=== PATIENT | male | born 1950 | race Caucasian/White ===

== ENCOUNTER → 2017-02-12 | Outpatient (CLI) | payer BC ==
--- NOTE | 2017-02-12 20:01 | CT ---
EXAMINATION TYPE: CT urogram wo/w con DATE OF EXAM: 02/12/2017 COMPARISON: 12/03/2009 HISTORY: HEMATURIA CT DLP: 546.9 mGycm, Automated Exposure Control for Dose Reduction was Utilized. CONTRAST: CT scan of the abdomen and pelvis is performed with oral and without and with IV Contrast, patient in jected with 100 mL of Omnipaque 300. FINDINGS: There is emphysema at the lung bases. There is no pleural effusion. Liver shows no focal defect. Gallbladder appears normal. Spleen appears normal. There is no sign of a pancreatic mass. There is moderate atherosclerotic vascular calcification. Bile ducts are not dilate d. Common bile duct measures 6 mm. There is mild 3 cm mid abdominal aortic aneurysm. There is no sign of retroperitoneal adenopathy. Kidneys have normal size and contour with normal contrast opacification. There is no hydronephrosis. Ureters are not dilated. The bladder distends smoothly. There is some retained fecal material in the rectum. There is no evidence of a bladder mass. CONCLUSION: Pulmonary emphysema. There is a 3 cm mild aneurysm of the abdominal aorta that is new compared to old exam. No evidence of renal mass or obstruction. I do not see a cause for hematuria. Atherosclerotic vascular disease. Mild constipation.
== END | disposition home or self-care (01) ==
LOC: RADCTMAIN 18:36
PROVIDERS: ATTEND Internal Medicine
DX: I71.4 Abdominal aortic aneurysm, without rupture (principal); I70.0 Atherosclerosis of aorta; K59.00 Constipation, unspecified
CPT/HCPCS: 74178; 74400; Q9967

== ENCOUNTER → 2017-02-16 | Outpatient (CLI) | payer BC ==
--- NOTE | 2017-02-16 10:17 | US ---
EXAMINATION TYPE: US carotid duplex BILAT DATE OF EXAM: 02/16/2017 COMPARISON: US 2013 CLINICAL HISTORY: I35.1 Nonrheumatic mitral regurgitation. Stenosis EXAM MEASUREMENTS: RIGHT: Peak Systolic Velocity (PSV) cm/sec ----- Right CCA: 63.3 ----- Right ICA: 123.7 ----- Right ECA: 90.8 ICA/CCA ratio: 2.0 RIGHT: End Diastole cm/sec ----- Right CCA: 13.6 ----- Right ICA: 31.8 ----- Right ECA: 0.0 LEFT: Peak Systolic Velocity (PSV) cm/sec ----- Left CCA: 75.4 ----- Left ICA: 219.8 ----- Left ECA: 122.1 ICA/CCA ratio: 2.9 LEFT: End Diastole cm/sec ----- Left CCA: 18.2 ----- Left ICA: 54.8 ----- Left ECA: 0.0 VERTEBRALS (direction of flow): Right Vertebral: Antegrade Left Vertebral: Antegrade Rhythm: Normal Bilateral intimal thickening, plaque: bilateral CCA, bulb and proximal ICA, elevated velocities: left proximal mid and distal ICA, right ICA/CCA ratio of 2.0, left ICA/CCA ratio of 2.9. IMPRESSION: 1. Sonographic findings indicating between 50-69% stenosis of the left internal carotid artery, howev er higher grade stenosis of 60-70% is estimated given the anderson scale images and CTA is recommended fo r further evaluation. Finding has progressed from the prior exam. 2. Approximately 50% stenosis of the right internal carotid artery. 3. Antegrade flow in the vertebral arteries.
--- NOTE | 2017-02-16 10:41 | US ---
EXAMINATION TYPE: US duplex aorta DATE OF EXAM: 02/16/2017 COMPARISON: US 2012, CT 2009 CLINICAL HISTORY: I35.1 Nonrheumatic mitral regurgitation. Nonrheumatic aortic regurgitation EXAM MEASUREMENTS: Abdominal Aorta: Proximal: 2.4 x 2.7cm Mid: 2.7 x 2.8cm Distal: 1.9 x 1.9cm Right Iliac: 1.6 x 0.9cm Left Iliac: 1.0 x 0.9cm Heavy atherosclerotic changes, 3.0 x 3.3 x 3.0cm aneurysm mid/distal portion of aorta. IMPRESSION: Severe atherosclerosis of the abdominal aorta with saccular right posterior lateral infra renal abdominal aortic aneurysm measuring 3.0 x 3.3 x 3.0 cm. This does not extend into the iliac art eries.
--- NOTE | 2017-02-16 11:14 | ECHOF ---
Referral Reason:I35.1 Nonrheumatic mitral regergitation MEASUREMENTS -------- HEIGHT: 172.7 cm WEIGHT: 54.4 kg BP: 183/75 IVSd: 0.6 cm (0.6 - 1.1) LVIDd: 4.3 cm (3.9 - 5.3) LVPWd: 0.9 cm (0.6 - 1.1) IVSs: 1.0 cm LVIDs: 3.2 cm LVPWs: 1.2 cm LAESV Index (A-L): 21.96 ml/m Ao Diam: 3.4 cm (2.0 - 3.7) AV Cusp: 2.1 cm (1.5 - 2.6) LA Diam: 3.0 cm (2.7 - 3.8) MV EXCURSION: 15.228 mm (> 18.000) MV EF SLOPE: 104 mm/s (70 - 150) EPSS: 0.8 cm MV E Marvin: 1.04 m/s MV DecT: 222 ms MV A Marvin: 0.91 m/s MV E/A Ratio: 1.14 AR PHT: 641 ms RAP: 5.00 mmHg RVSP: 61.55 mmHg FINDINGS -------- Sinus rhythm. This was a technically good study. The left ventricular size is normal. Left ventricular wall thickness is normal. Overall left vent ricular systolic function is mildly impaired with, an EF between 45 - 50 %. The right ventricle is normal in size and function. Normal LA size by volume 22+/-6 ml/m2. The right atrium is mildly enlarged. Aortic valve is trileaflet and is mildly thickened. There is mild aortic regurgitation. The mitral valve leaflets are mildly thickened. Mild mitral regurgitation is present. Moderate tricuspid regurgitation present. There is moderate pulmonary hypertension. The right cindy tricular systolic pressure, as measured by Doppler, is 61.55mmHg. Pulmonic valve appears structurally normal. The aortic root size is normal. The inferior vena cava is moderately dilated. The pericardium is normal. CONCLUSIONS -------- 1. Sinus rhythm. 2. This was a technically good study. 3. The left ventricular size is normal. 4. Left ventricular wall thickness is normal. 5. Overall left ventricular systolic function is mildly impaired with, an EF between 45 - 50 %. 6. The right ventricle is normal in size and function. 7. Normal LA size by volume 22+/-6 ml/m2. 8. The right atrium is mildly enlarged. 9. Aortic valve is trileaflet and is mildly thickened. 10. There is mild aortic regurgitation. 11. The mitral valve leaflets are mildly thickened. 12. Mild mitral regurgitation is present. 13. Moderate tricuspid regurgitation present. 14. There is moderate pulmonary hypertension. 15. The right ventricular systolic pressure, as measured by Doppler, is 61.55mmHg. 16. Pulmonic valve appears structurally normal. 17. The aortic root size is normal. 18. The inferior vena cava is moderately dilated. 19. The pericardium is normal. BUSINESS SYSTEMS ANALYST: Nelli Burns RDCS
== END ==
LOC: RADUSMAIN 08:35
PROVIDERS: ATTEND Internal Medicine
DX: I65.22 Occlusion and stenosis of left carotid artery (principal); I70.0 Atherosclerosis of aorta; I71.4 Abdominal aortic aneurysm, without rupture; I72.3 Aneurysm of iliac artery; I08.3 Combined rheumatic disorders of mitral, aortic and tricuspid valves; I27.20 Pulmonary hypertension, unspecified
CPT/HCPCS: 93306; 93880; 93979

== ENCOUNTER → 2018-01-21 | Outpatient (CLI) | payer MEDICARE ==
[2018-01-21 14:01] LABS: Appearance,Urine Clear (Clear); Bilirubin,Urine Negative (Negative); Blood,Urine Negative (Negative); Color,Urine Yellow; Glucose,Urine (UA) Negative (Negative); Ketones,Urine Negative (Negative); Leukocyte Esterase,Urine Negative (Negative); Nitrite,Urine Negative (Negative); PH, Urine 6.5 (5.0-8.0); Protein,Urine Trace (Negative); Specific Gravity,Urine 1.014 (1.001-1.035); Urobilinogen,Urine <2.0 mg/dL (<2.0)
[2018-01-21 14:07] LABS: Basophils # (A) 0.1 k/uL (0-0.2); Basophils % (A) 1 %; Eosinophils # (A) 0.1 k/uL (0-0.7); Eosinophils % (A) 1 %; HCT 42.1 % (39.0-53.0); HGB 13.2 gm/dL (13.0-17.5); Lymphocytes # (A) 2.7 k/uL (1.0-4.8); Lymphocytes % (A) 27 %; MCH 32.6 pg (25.0-35.0); MCHC 31.5 g/dL (31.0-37.0); MCV 103.7 fL (80.0-100.0); Macrocytosis Slight; Mean Platelet Volume 7.1; Monocytes # (A) 0.6 k/uL (0-1.0); Monocytes % (A) 6 %; Neutrophils # (A) 6.3 k/uL (1.3-7.7); Neutrophils % (A) 64 %; Platelet Count 305 k/uL (150-450); RBC 4.06 m/uL (4.30-5.90); RDW 13.8 % (11.5-15.5)
[2018-01-21 14:18] LABS: Albumin 4.8 g/dL (3.5-5.0); Calcium 10.3 mg/dL (8.4-10.2); Potassium 4.5 mmol/L (3.5-5.1); Total Bilirubin 0.4 mg/dL (0.2-1.3); Total Protein 8.4 g/dL (6.3-8.2); Uric Acid 6.7 mg/dL (3.5-8.5)
[2018-01-21 14:34] LABS: T4, Free (Free Thyroxine) 1.26 ng/dL (0.78-2.19)
[2018-01-21 14:48] LABS: Prostate Specific Antigen 0.67 ng/mL (0.00-4.00)
[2018-01-21 20:41] LABS: Hemoglobin A1C 5.3 % (4.0-6.0)
== END | disposition home or self-care (01) ==
LOC: LABWHC1 12:33
PROVIDERS: ATTEND Internal Medicine
DX: G40.89 Other seizures (principal); I10 Essential (primary) hypertension; E78.00 Pure hypercholesterolemia, unspecified; J44.9 Chronic obstructive pulmonary disease, unspecified; N40.1 Benign prostatic hyperplasia with lower urinary tract symptoms
CPT/HCPCS: 36415; 80053; 80061; 81003; 82550; 83036; 83735; 84153; 84439; 84443; 84550; 85025

== ENCOUNTER → 2018-03-19 | Outpatient (CLI) | payer MEDICARE | LOC: LABWHC1 06:33 | PROVIDERS: ATTEND Internal Medicine | DX: I10 Essential (primary) hypertension (principal); G40.89 Other seizures; E78.00 Pure hypercholesterolemia, unspecified; N40.1 Benign prostatic hyperplasia with lower urinary tract symptoms; J44.9 Chronic obstructive pulmonary disease, unspecified | CPT/HCPCS: 36415; 80164 ==

== ENCOUNTER → 2018-07-01 | Outpatient (CLI) | payer MEDICARE, OTHER ==
--- NOTE | 2018-07-01 16:39 | US ---
EXAMINATION TYPE: US carotid duplex BILAT DATE OF EXAM: 07/01/2018 COMPARISON: NONE CLINICAL HISTORY: I65.23 Occlusion and stenosis of bilat carotid.... EXAM MEASUREMENTS: RIGHT: Peak Systolic Velocity (PSV) cm/sec ----- Right CCA: 136.9 ----- Right ICA: 211.7 ----- Right ECA: 199.2 ICA/CCA ratio: 1.5 RIGHT: End Diastole cm/sec ----- Right CCA: 27.2 ----- Right ICA: 50.5 ----- Right ECA: 9.8 LEFT: Peak Systolic Velocity (PSV) cm/sec ----- Left CCA: 140.2 ----- Left ICA: 356.4 ----- Left ECA: 221.2 ICA/CCA ratio: 2.5 LEFT: End Diastole cm/sec ----- Left CCA: 27.2 ----- Left ICA: 77.7 ----- Left ECA: 0.0 VERTEBRALS (direction of flow): Right Vertebral: Antegrade Left Vertebral: Antegrade Rhythm: Arrhythmia Patient has severe atherosclerotic changes with calcified plaque throughout. High velocities seen thr oughout with elevations in bilateral ICA's. Ratio believed to be underestimated due to high velocitie s in CCA's. Waveform analysis show significant stenosis likely on the left. IMPRESSION: Hemodynamic significant stenosis of the proximal internal carotid artery on the left by Doppler criteria, an indirect measurement of carotid stenosis. Findings likely at least 50-69% diamet er reduction on the left, velocities are diffusely elevated however. There are diffuse atheromatous changes. Consider vascular surgery consult. Criteria for Assigning % of Stenosis / Diameter reduction (Estimation based on the indirect measurements of the internal carotid artery velocities (ICA PSV). 1. Normal (no stenosis)=ICA PSV < 125 cm/s: ratio < 2.0: ICA EDV<40 cm/s. 2. Less than 50% stenosis=ICA PSV < 125 cm/s: ratio < 2.0: ICA EDV<40 cm/s. 3. 50 to 69% stenosis=ICA PSV of 125 to 230 cm/s: ration 2.0 ? 4.0: ICA EDV 40-100 cm/s. 4. Greater than 70% stenosis to near occlusion= ICA PSV > 230 cm/s: ratio > 4.0: ICA EDV > 100 cm/s. 5. Near occlusion= ICA PSV velocities may be low or undetectable: variable ratio and ICA EDV. 6. Total occlusion=unable to detect flow.
--- NOTE | 2018-07-02 13:23 | ECHOF ---
Referral Reason:I65.23 Occlusion and stenosis of bilat carotid... MEASUREMENTS -------- HEIGHT: 172.7 cm WEIGHT: 63.5 kg BP: 114/55 RVIDd: 2.9 cm (< 3.3) IVSd: 1.0 cm (0.6 - 1.1) LVIDd: 4.0 cm (3.9 - 5.3) LVPWd: 1.1 cm (0.6 - 1.1) IVSs: 1.6 cm LVIDs: 2.7 cm LVPWs: 1.4 cm LA Diam: 2.8 cm (2.7 - 3.8) LAESV Index (A-L): 14.16 ml/m Ao Diam: 3.5 cm (2.0 - 3.7) AV Cusp: 2.2 cm (1.5 - 2.6) MV EXCURSION: 17.614 mm (> 18.000) MV EF SLOPE: 85 mm/s (70 - 150) EPSS: 0.3 cm MV E Marvin: 0.77 m/s MV DecT: 226 ms MV A Marvin: 0.87 m/s MV E/A Ratio: 0.88 AR PHT: 263 ms RAP: 5.00 mmHg RVSP: 34.02 mmHg FINDINGS -------- Sinus rhythm. This was a technically adequate study. The left ventricular size is normal. Left ventricular wall thickness is normal. Overall left vent ricular systolic function is normal with, an EF between 60 - 65 %. The right ventricle is normal in size. Normal LA size by volume 22+/-6 ml/m2. The right atrium is normal in size. There is mild aortic valve sclerosis. There is mild aortic regurgitation. The mitral valve is normal. Mild tricuspid regurgitation present. There is borderline pulmonary hypertension. There is no pulmonic regurgitation present. The aortic root size is normal. Normal inferior vena cava with normal inspiratory collapse consistent with estimated right atrial pre ssure of 5 mmHg. There is a trivial pericardial effusion present. CONCLUSIONS -------- 1. Sinus rhythm. 2. This was a technically adequate study. 3. The left ventricular size is normal. 4. Left ventricular wall thickness is normal. 5. Overall left ventricular systolic function is normal with, an EF between 60 - 65 %. 6. The right ventricle is normal in size. 7. Normal LA size by volume 22+/-6 ml/m2. 8. The right atrium is normal in size. 9. There is mild aortic valve sclerosis. 10. There is mild aortic regurgitation. 11. The mitral valve is normal. 12. Mild tricuspid regurgitation present. 13. There is borderline pulmonary hypertension. 14. There is no pulmonic regurgitation present. 15. The aortic root size is normal. 16. Normal inferior vena cava with normal inspiratory collapse consistent with estimated right atrial pressure of 5 mmHg. 17. There is a trivial pericardial effusion present. CARTON FILLING MACHINE OPERATOR: Ivanna Leblanc RDCS
== END | disposition home or self-care (01) ==
LOC: RADECHMAIN 14:19
PROVIDERS: ATTEND Internal Medicine
DX: I65.22 Occlusion and stenosis of left carotid artery (principal); I08.3 Combined rheumatic disorders of mitral, aortic and tricuspid valves; I27.20 Pulmonary hypertension, unspecified; I31.3 Pericardial effusion (noninflammatory)
CPT/HCPCS: 93306; 93880

== ENCOUNTER → 2018-07-01 | Outpatient (CLI) | payer MEDICARE, OTHER ==
--- NOTE | 2018-07-01 15:33 | CTL ---
EXAMINATION TYPE: CT Low Dose Lung DATE OF EXAM ORDERED: 07/01/2018 HISTORY: Long-term tobacco use. Lung cancer screening CT DLP: 55.[address] CTDI: 1.5 mGy Automated exposure control for dose reduction was used. SCREENING VISIT: Initial study COMPARISON: CT chest October 28, 2014 TECHNIQUE: Low dose computed tomography scan was performed through the chest at 1 mm thick sections a nd reconstructed images in the coronal plane at [address] DIAGNOSTIC QUALITY: Satisfactory FINDINGS: LUNG NODULES: Present, detailed below: A 3 mm nodule laterally left lower lobe axial image 233 likely stable from prior study image 46 There is new right medial lower lobe masslike consolidation appears to have some air bronchograms abu tting the pleura measuring 3.9 x 1.8 cm axial image 2 37 x 7.1 cm craniocaudal dimension coronal imag e 177. LUNGS: COPD: Severity: Moderate to severe Fibrosis: Severity: Additional mild to moderate linear scarring felt present left lower lobe new from prior. Mild biapical scarring. Lymph nodes: None Other findings: None BILATERAL PLEURAL SPACE: Effusion: None Calcification: None Thickening: None Pneumothorax: None HEART: Heart Size: Normal Coronary calcification: Severe Pericardial effusion: None OTHER FINDINGS: Upper abdomen: None Bony thorax: Mild multilevel disc space narrowing with mild to moderate multilevel anterior spurring Supraclavicular region: None. Other: Moderate calcified plaque of aorta extends into branch vessels. Main pulmonary artery is dilat ed at 3.[address] findings suggesting underlying pulmonary artery hypertension. IMPRESSION: Moderate to severe underlying emphysematous change with new masslike consolidation medial right lower lobe has some air bronchograms favor postinflammatory in etiology but because masslike a ppearance neoplasm cannot be excluded. FOLLOW UP CT CHEST RECOMMENDATION: Advise PET/CT CT LUNG RAD: Lung-Rad 4B Suspicious Findings favor postinflammatory, correlate clinically. PET/CT can be performed to exclude malignancy.
== END | disposition home or self-care (01) ==
LOC: RADCTMAIN 14:14
PROVIDERS: ATTEND Internal Medicine
DX: Z12.2 Encounter for screening for malignant neoplasm of respiratory organs (principal); J43.9 Emphysema, unspecified; Z87.891 Personal history of nicotine dependence

== ENCOUNTER → 2018-07-29 | Outpatient (CLI) | payer MEDICARE, OTHER | LOC: RADCTMAIN 08:07 | PROVIDERS: ATTEND Thoracic Surgery (Cardiothoracic Vascular Surgery) | DX: Z01.812 Encounter for preprocedural laboratory examination (principal); I65.23 Occlusion and stenosis of bilateral carotid arteries | CPT/HCPCS: 70549; 82565; 84520 ==

== ENCOUNTER → 2018-07-29 | Outpatient (CLI) | payer MEDICARE, OTHER ==
--- NOTE | 2018-07-29 22:24 | MR ---
EXAMINATION TYPE: MR angio neck wo/w con DATE OF EXAM: 07/29/2018 COMPARISON: Carotid ultrasound July 01, 2018 HISTORY: Stenosis TECHNIQUE: Time of flight images focusing on the neck Ruano were performed without and with IV contr ast. Patient is injected with 6.5 cc of gadolinium this for the study. 2-D and 3-D postprocessing im aging is performed in MRI scanner. FINDINGS: There is normal three-vessel origin from aortic arch. Right common carotid artery shows nor mal origin from right brachiocephalic artery. There is no significant focal stenosis in the right com mon carotid artery There is greater than 50% narrowing in the right external carotid artery shortly a fter its origin seen best on axial image 37 series 401. Right internal carotid artery is bulbous shor tly after its origin with filling moderate peripheral plaque just distal to this, lumen diameter is n arrowed to approximately 5.1 mm transversely by 2.8 cm AP diameter image 47 series 401 and reconstitu raimundo to 5.6 mm image 57. The stenosis less than 50% is felt present. Remainder of right internal carot id artery shows no significant focal stenosis. Left common carotid artery shows mild peripheral plaque near its origin with stenosis under 50% thoug ht present remainder common carotid artery shows mild to moderate plaque distally without significant stenosis. There is patent external carotid artery with moderate plaque but no greater than 50% steno sis. There is bulbous appearance to the left internal carotid artery shortly after its origin with se angy anterior eccentric plaque causing narrowing down to 3.9 x 3.2 mm axial image 46 series 401 with reconstitution distal to this at 6.5 x 6.4 mm. A stenosis just over 50% is felt present. Remainder of left internal carotid artery shows no additional significant stenosis. There is dominant right vertebral artery. Vertebral arteries are patent to basilar junction. IMPRESSION: Confirmation of greater than 50% stenosis proximal left internal carotid artery details a arsalan.
== END ==
LOC: RADMRIMAIN 19:10
PROVIDERS: ATTEND Thoracic Surgery (Cardiothoracic Vascular Surgery)
DX: I65.22 Occlusion and stenosis of left carotid artery (principal)
CPT/HCPCS: 70549; A9585

== ENCOUNTER → 2018-08-03 | Outpatient (CLI) | payer MEDICARE, OTHER ==
--- NOTE | 2018-08-05 07:29 | PE ---
EXAMINATION TYPE: PET CT fusion skull to thigh DATE OF EXAM: 08/03/2018 COMPARISON: Low-dose lung screening CT July 01, 2018. CT urogram February 12, 2017. HISTORY: Lung mass per order. Recent abnormal CT. TECHNIQUE: Following the intravenous administration of 13.945 mCi of F-18 FDG, whole body images are performed from the skull base to the midthigh. Images are reviewed on the computer in the coronal, axial, and sagittal planes. Reconstructed rotating images are created on independent workstation and reviewed on the computer. A noncontrast CT is performed in conjunction with the PET scan. SCAN: Initial Scan FINDINGS: SKULL BASE AND NECK: No suspicious areas of abnormal hypermetabolic uptake. CHEST, MEDIASTINUM, AND HILAR REGION: A background moderate to advanced underlying emphysematous emery nge is redemonstrated. There is persistent masslike consolidation with central air bronchograms media l right lung base abutting the pleura measuring roughly 4.3 x 1.9 cm axial image 119, that appears am etabolic. No areas of abnormal hypermetabolic uptake are present to suggest malignancy. Focus of mild hypermetabolic uptake right shoulder is presumed postinflammatory. The 3 mm left lower lobe lateral nodule is less well-seen on PET/CT. ABDOMEN AND PELVIS: No areas of suspicious hypermetabolic uptake. OSSEOUS STRUCTURES: No areas of suspicious hypermetabolic uptake. OTHER CT: Moderate to severe calcified plaque centered at bilateral carotid bulbs is present. Main pulmonary artery and bifurcation measures 3.5 cm axial image 96. Adjacent ascending aorta measur es up to 3.5 cm. Moderate to severe coronary artery calcification is present which is noted marked underlying coronary artery disease. Bilateral gynecomastia is noted. Gallbladder has distended margins. There is moderate to severe calcified plaque of the aorta extendin g into branch vessels. There is aneurysmal change of the abdominal aorta measuring up to 3.1 cm trans versely axial image 165. There is multilevel spurring in the spine. There is facet arthropathy lower lumbar levels. Scoliotic curvature in the lumbar spine is noted. IMPRESSION: No areas of abnormal hypermetabolic uptake to suggest malignancy. Area of concern medial right lung base favors postinflammatory scar.
== END | disposition home or self-care (01) ==
LOC: RADPETMAIN 07:20
PROVIDERS: ATTEND Internal Medicine Pulmonary Disease
DX: R91.8 Other nonspecific abnormal finding of lung field (principal)
CPT/HCPCS: 78815; A9552

== ENCOUNTER → 2018-10-18 | Outpatient (CLI) | payer MEDICARE, OTHER ==
--- NOTE | 2018-10-18 20:10 | CT ---
EXAMINATION TYPE: CT chest wo con DATE OF EXAM: 10/18/2018 COMPARISON: Prior PET/CT 08/03/[address] low dose lung 07/01/2018 HISTORY: Solitary pulmonary nodule. CT DLP: 117.8 mGycm. Automated Exposure Control for Dose Reduction was Utilized. TECHNIQUE: CT scan of the thorax is performed without IV contrast. FINDINGS: LUNGS: The right lower lobe soft tissue seen on prior exam adjacent to the spine has decreased in siz e in the interval, there is some internal air bronchograms. Extensive emphysematous changes are prese nt. There is scarring present as on prior exam. There is no pleural effusion or pneumothorax seen. T he tracheobronchial tree is patent. MEDIASTINUM: Lack of IV contrast is noted to limit evaluation for mediastinal and especially hilar ad enopathy. There are no definitive greater than 1 cm hilar or mediastinal lymph nodes. No cardiomega ly or pericardial effusion is seen. There are coronary artery calcifications present. Atheromatous ch anges are present within the aorta. OTHER: No additional significant abnormality is seen. Upper abdomen is unremarkable. IMPRESSION: Favor postinflammatory scarring as described on previous exams.
== END | disposition home or self-care (01) ==
LOC: RADCTMAIN 16:31
PROVIDERS: ATTEND Internal Medicine
DX: R91.1 Solitary pulmonary nodule (principal)
CPT/HCPCS: 71250

== ENCOUNTER 2018-11-05 00:07 | Emergency (ER) | payer MEDICARE, OTHER ==
[2018-11-05 00:20] VITALS: RESP 18; TEMP 98.3
--- NOTE | 2018-11-05 00:31 | ED ---
General Adult HPI - General Chief complaint: Altered Mental Status Stated complaint: Altered Mental Status Time Seen by Provider: 11/05/18 00:09 Source: patient, EMS Mode of arrival: EMS Limitations: altered mental status - History of Present Illness Initial comments: Dictation was produced using [employer] dictation software. please excuse any grammatical, word or spelling errors. Chief Complaint: 67-year-old male presents today via EMS for altered mental status. History of Present Illness: Patient is 67-year-old male presents with altered mental status. Patient's past medical history of hypertension and cancer. Patient is a very poor historian. EMS reports that they were called for altered mental status. Cardiac EMS patient was alert and oriented 3 out of 4. EMS was called by patient's family member. According EMS patient has a history of being seen here in emergency department and having to be transferred to [facility] for bleeding lesions on the brain. She has no idea of his medical history. He however has no points of shortness of breath, fever. He did state that he was nauseated. He had 2 episodes of nonbilious nonbloody emesis today. The ROS documented in this emergency department record has been reviewed and confirmed by me. Those systems with pertinent positive or negative responses h ave been documented in the HPI. All other systems are other negative and/or noncontributory. PHYSICAL EXAM: General Impression: Alert and oriented x3, not in acute distress HEENT: Normocephalic atraumatic, extra-ocular movements intact, pupils equal and reactive to light bilaterally, mucous membranes moist. Cardiovascular: Heart regular rate and rhythm, S1&S2 audible, no murmurs, rubs or gallops Chest: Lungs clear to auscultation bilaterally, no rhonchi, no wheeze, no rales Abdomen: Bowel sounds present, abdomen soft, non-tender, non-distended, no organomegaly Musculoskeletal: Pulses present and equal in all extremities, no peripheral edema Motor: no focal deficits noted Neurological: CN II-XII grossly intact, no focal motor or sensory deficits noted Skin: Intact with no visualized rashes Psych: Normal affect and mood ED course: 67-year-old male presents with altered mental status. Vital signs upon arrival are within acceptable limits. More history was obtained from patient's . Patient has a history of dementia. reports that patient was the sling signs of abnormal behavior at home. He has history of this year. Patient has no complaints at this time. He feels well. Did have some nausea earlier today. is comfortable taking him home. Computed tomography scan of the brain and laboratory evaluation is unremarkable. Patient clear for discharge advised follow-up with primary care physician. Brenda presentation consistent with dementia. EKG interpretation: Ventricular rate 69, normal sinus rhythm,. Interval 140, care is 80, QTc 441. No [place] prolongation, no QTC prolongation, no ST or T-wave changes noted. . Overall, this EKG is unremarkable - Related Data Home Medications Medication Instructions Recorded Confirmed ALPRAZolam [Xanax] 0.25 mg PO BID PRN 03/24/17 03/24/17 Baclofen 10 mg PO BID 03/24/17 03/24/17 Escitalopram [Lexapro] 5 mg PO DAILY 03/24/17 03/24/17 Hydrocodone/Acetaminophen [B[place] 1 tab PO Q8H PRN 03/24/17 03/24/17 10-325] Lisinopril [Zestril] 20 mg PO BID 03/24/17 03/24/17 Mirtazapine 45 mg PO HS 03/24/17 03/24/17 Pantoprazole Sodium 40 mg PO DAILY 03/24/17 03/24/17 Previous Rx's Medication Instructions Recorded Ondansetron Odt [Zofran Odt] 4 mg PO Q8HR PRN #12 tab 11/05/18 Allergies Allergy/AdvReac Type Severity Reaction Status Date / Time No Known Allergies Allergy Verified 11/05/18 00:20 Review of Systems ROS Statement: Those systems with pertinent positive or pertinent negative responses have been documented in the HPI. ROS Other: All systems not noted in ROS Statement are negative. Past Medical History Past Medical History: Hypertension Additional Past Medical History / Comment(s): lesions on brain 2017 that were bleeding History of Any Multi-Drug Resistant Organisms: None Reported Past Surgical History: No Surgical Hx Reported Past Psychological History: No Psychological Hx Reported Smoking Status: Current every day smoker Past Alcohol Use History: None Reported Past Drug Use History: None Reported - Past Family History Father Additional Family Medical History / Comment(s): Both parents are but family members are unable to provide any information regarding his family medical history. Patient also has 2 brothers and one sister. There are 2 sons and one adopted daughter. General Exam Limitations: altered mental status Course Vital Signs 11/05/18 00:13 Temperature 98.3 F Pulse Rate 73 Respiratory 18 Rate Blood Pressure 155/60 O2 Sat by Pulse 97 Oximetry Medical Decision Making - Lab Data Result diagrams: 11/05/18 01:05 11/05/18 01:05 Lab Results 11/05/18 11/05/18 11/05/18 Range/Units 01:05 01:05 01:05 WBC 6.8 (3.8-10.6) k/uL RBC 3.66 L (4.30-5.90) m/uL Hgb 13.0 (13.0-17.5) gm/dL Hct 40.2 (39.0-53.0) % MCV 109.8 H (80.0-100.0) fL MCH 35.6 H (25.0-35.0) pg MCHC 32.5 (31.0-37.0) g/dL RDW 17.0 H (11.5-15.5) % Plt Count 225 (150-450) k/uL Neutrophils % 70 % Lymphocytes % 18 % Monocytes % 7 % Eosinophils % 2 % Basophils % 1 % Neutrophils # 4.7 (1.3-7.7) k/uL Lymphocytes # 1.3 (1.0-4.8) k/uL Monocytes # 0.5 (0-1.0) k/uL Eosinophils # 0.2 (0-0.7) k/uL Basophils # 0.0 (0-0.2) k/uL Manual Slide Review Performed Hypersegmented Neuts Present Anisocytosis Slight Macrocytosis Marked A PT (9.0-12.0) sec INR (<1.2) Sodium 145 (137-145) mmol/L Potassium 4.2 (3.5-5.1) mmol/L Chloride 114 H (98-107) mmol/L Carbon Dioxide 20 L (22-30) mmol/L Anion Gap 11 mmol/L BUN 23 H (9-20) mg/dL Creatinine 1.23 (0.66-1.25) mg/dL Est GFR (CKD-EPI)AfAm 71 (>60 ml/min/1.73 sqM) Est GFR (CKD-EPI)NonAf 62 (>60 ml/min/1.73 sqM) Glucose 124 H (74-99) mg/dL Plasma Lactic Acid Martínez 1.1 (0.7-2.0) mmol/L Calcium 10.2 (8.4-10.2) mg/dL Magnesium 2.2 (1.6-2.3) mg/dL 11/05/18 Range/Units 01:05 WBC (3.8-10.6) k/uL RBC (4.30-5.90) m/uL Hgb (13.0-17.5) gm/dL Hct (39.0-53.0) % MCV (80.0-100.0) fL MCH (25.0-35.0) pg MCHC (31.0-37.0) g/dL RDW (11.5-15.5) % Plt Count (150-450) k/uL Neutrophils % % Lymphocytes % % Monocytes % % Eosinophils % % Basophils % % Neutrophils # (1.3-7.7) k/uL Lymphocytes # (1.0-4.8) k/uL Monocytes # (0-1.0) k/uL Eosinophils # (0-0.7) k/uL Basophils # (0-0.2) k/uL Manual Slide Review Hypersegmented Neuts Anisocytosis Macrocytosis PT 10.7 (9.0-12.0) sec INR 1.0 (<1.2) Sodium (137-145) mmol/L Potassium (3.5-5.1) mmol/L Chloride (98-107) mmol/L Carbon Dioxide (22-30) mmol/L Anion Gap mmol/L BUN (9-20) mg/dL Creatinine (0.66-1.25) mg/dL Est GFR (CKD-EPI)AfAm (>60 ml/min/1.73 sqM) Est GFR (CKD-EPI)NonAf (>60 ml/min/1.73 sqM) Glucose (74-99) mg/dL Plasma Lactic Acid Martínez (0.7-2.0) mmol/L Calcium (8.4-10.2) mg/dL Magnesium (1.6-2.3) mg/dL Disposition Clinical Impression: Dementia Disposition: HOME SELF-CARE Condition: Good Instructions (If sedation given, give patient instructions): Altered Mental Status (ED) Prescriptions: Ondansetron Odt [Zofran Odt] 4 mg PO Q8HR PRN #12 tab PRN Reason: Nausea Is patient prescribed a controlled substance at d/c from ED?: No Referrals: Kiet Chester MD [Primary Care Provider] - 1-2 days Time of Disposition: 02:36
[2018-11-05 01:15] LABS: Anisocytosis Slight; Basophils % (A) 1 %; Eosinophils # (A) 0.2 k/uL (0-0.7); Eosinophils % (A) 2 %; HCT 40.2 % (39.0-53.0); Lymphocytes # (A) 1.3 k/uL (1.0-4.8); Lymphocytes % (A) 18 %; MCH 35.6 pg (25.0-35.0); MCHC 32.5 g/dL (31.0-37.0); MCV 109.8 fL (80.0-100.0); Macrocytosis Marked; Mean Platelet Volume 6.8; Monocytes # (A) 0.5 k/uL (0-1.0); Monocytes % (A) 7 %; Neutrophils # (A) 4.7 k/uL (1.3-7.7); Neutrophils % (A) 70 %; Platelet Count 225 k/uL (150-450); RBC 3.66 m/uL (4.30-5.90); WBC 6.8 k/uL (3.8-10.6)
--- NOTE | 2018-11-05 01:23 | CT ---
EXAM: CT Head Without Intravenous Contrast CLINICAL HISTORY: Pain TECHNIQUE: Axial computed tomography images of the head/brain without intravenous contrast. CTDI is 0.085, 0.75, 49.1mGy and DLP is 1117.4 mGy-cm. This CT exam was performed using one or more of the following dose reduction techniques: automated exposure control, adjustment of the mA and/or kV according to patient size, and/or use of iterative reconstruction technique. COMPARISON: CT head dated 03/24/2017 FINDINGS: Brain: No acute infarct, hemorrhage, mass or edema. Chronic small vessel ischemic disease and senescent changes. Small amount of encephalomalacia within the right occipital lobe. Ventricles: Unremarkable. No ventriculomegaly. Bones/joints: Evidence of prior right occipital craniotomy. No acute calvarial abnormality. Soft tissues: Unremarkable. Sinuses: Unremarkable as visualized. No acute sinusitis. Mastoid air cells: Unremarkable as visualized. No mastoid effusion. IMPRESSION: No acute findings.
[2018-11-05 01:24] LABS: Calcium 10.2 mg/dL (8.4-10.2); Magnesium 2.2 mg/dL (1.6-2.3); Potassium 4.2 mmol/L (3.5-5.1)
[2018-11-05 01:36] LABS: Prothrombin Time 10.7 sec (9.0-12.0)
[2018-11-05 02:26] LABS: Hypersegmented Neutrophils Present
[2018-11-05 03:28] LABS: Appearance,Urine Clear (Clear); Bilirubin,Urine Negative (Negative); Blood,Urine Trace (Negative); Color,Urine Yellow; Glucose,Urine (UA) Negative (Negative); Ketones,Urine Negative (Negative); Leukocyte Esterase,Urine Negative (Negative); Mucus,Urine Rare /hpf; Nitrite,Urine Negative (Negative); PH, Urine 5.5 (5.0-8.0); Protein,Urine Trace (Negative); RBC,Urine 22 /hpf (0-5); Urobilinogen,Urine <2.0 mg/dL (<2.0)
[2018-11-05 03:38] LABS: Amphetamine Screen,Urine Not Detected (NotDetected); Benzodiazepines Screen,Urine Detected (NotDetected); Cocaine Screen,Urine Not Detected (NotDetected); Opiate Screen,Urine Not Detected (NotDetected); Phencyclidine Screen,Urine Not Detected (NotDetected); Tricyclic Antidepressant,Urine Detected (NotDetected)
[2018-11-05 03:39] LABS: Barbiturate Screen,Urine Not Detected (NotDetected); Methadone Screen, Urine Not Detected (NotDetected); Oxycodone Screen, Urine Not Detected (NotDetected); Urn Cannabinoid Scrn Not Detected (NotDetected)
[2018-11-05 04:07] VITALS: BP 136/100; PULSE 69
== END 2018-11-05 04:06 | disposition home or self-care (01) ==
LOC: EC 00:07
DX: F03.90 Unspecified dementia, unspecified severity, without behavioral disturbance, psychotic disturbance, mood disturbance, and anxiety (principal); R11.2 Nausea with vomiting, unspecified; I10 Essential (primary) hypertension; F17.200 Nicotine dependence, unspecified, uncomplicated; Z79.899 Other long term (current) drug therapy; Z85.9 Personal history of malignant neoplasm, unspecified; Z86.69 Personal history of other diseases of the nervous system and sense organs
CPT/HCPCS: 36415; 70450; 80048; 80306; 81001; 83605; 83735; 85025; 85610; 93005; 99285

== ENCOUNTER 2019-01-16 12:40 | Inpatient (IN) | payer MEDICARE, OTHER ==
[2019-01-16] MEDS ORDERED: SODIUM CHLORIDE 0.9% 1,000 ML IV STA (13:16)
--- NOTE | 2019-01-16 13:21 | ED ---
Fever HPI - General Chief Complaint: Fever Stated Complaint: flu like symptoms Time Seen by Provider: 01/16/19 12:55 Source: patient, EMS Mode of arrival: EMS Limitations: no limitations - History of Present Illness Initial Comments: Patient is a 68-year-old male with history of dementia and seizures presenting to emergency Department with a chief complaint of a fever. Patient is a poor historian but but is still able to answer questions. Patient is AO 3. is there to obtain further information. The reports the patient has developed generalized weakness, confusion, urinary and bowel incontinence. also reports the patient was not able to take his medication for the past 2 days due to inability to swallow. reports the patient has had difficulty swallowing for over a year however recently has increased in severity. Was reports the patient had bleeding brain lesions that were detected in this ED and the patient was transferred to him before.. reports the patient had fevers or chills over the past 2-3 days but never actually obtained his temperature. Patient denies headaches, lightheadedness, dizziness, shortness of breath, chest pain, nausea, vomiting. - Related Data Home Medications Medication Instructions Recorded Confirmed Baclofen 10 mg PO BID PRN 03/24/17 01/16/19 Acetaminophen [Tylenol Arthritis] 650 mg PO Q4H PRN 01/16/19 01/16/19 Atorvastatin [Lipitor] 40 mg PO DAILY 01/16/19 01/16/19 Divalproex Sodium [Depakote] 500 mg PO BID 01/16/19 01/16/19 Famotidine [Pepcid] 20 mg PO DAILY 01/16/19 01/16/19 Gemfibrozil [Lopid] 600 mg PO AC-BID 01/16/19 01/16/19 Irbesartan [Avapro] 300 mg PO DAILY 01/16/19 01/16/19 Mirtazapine [Remeron] 15 mg PO HS 01/16/19 01/16/19 amLODIPine [Norvasc] 5 mg PO BID 01/16/19 01/16/19 hydrALAZINE HCL [Apresoline] 100 mg PO TID 01/16/19 01/16/19 Allergies Allergy/AdvReac Type Severity Reaction Status Date / Time No Known Allergies Allergy Verified 01/16/19 17:05 Review of Systems ROS Statement: Those systems with pertinent positive or pertinent negative responses have been documented in the HPI. ROS Other: All systems not noted in ROS Statement are negative. Past Medical History Past Medical History: Hypertension, Seizure Disorder Additional Past Medical History / Comment(s): lesions on brain 2017 that were bleeding History of Any Multi-Drug Resistant Organisms: None Reported Past Surgical History: No Surgical Hx Reported Additional Past Surgical History / Comment(s): foot surgery Past Psychological History: No Psychological Hx Reported Smoking Status: Current every day smoker Past Alcohol Use History: None Reported Past Drug Use History: None Reported - Past Family History Father Additional Family Medical History / Comment(s): Both parents are but family members are unable to provide any information regarding his family medical history. Patient also has 2 brothers and one sister. There are 2 sons and one adopted daughter. General Exam Limitations: no limitations General appearance: alert, in no apparent distress Head exam: Present: atraumatic, normocephalic, normal inspection Eye exam: Present: normal appearance Pupils: Present: normal accommodation ENT exam: Present: normal exam, normal oropharynx, mucous membranes dry, TM's normal bilaterally, normal external ear exam Neck exam: Present: normal inspection, full ROM Respiratory exam: Present: normal lung sounds bilaterally Cardiovascular Exam: Present: regular rate, normal rhythm, normal heart sounds GI/Abdominal exam: Present: soft. Absent: tenderness, guarding Rectal exam: Present: normal rectal tone Extremities exam: Present: normal inspection, full ROM Back exam: Present: normal inspection, full ROM Neurological exam: Present: alert, oriented X3 Psychiatric exam: Present: normal affect, normal mood Skin exam: Present: warm, intact, normal color Course Vital Signs 01/16/19 01/16/19 01/16/19 12:45 14:10 15:23 Temperature 98.9 F 100.7 F H Pulse Rate 106 H 102 H 117 H Respiratory 18 16 18 Rate Blood Pressure 170/76 160/64 145/70 O2 Sat by Pulse 98 97 94 L Oximetry Medical Decision Making - Medical Decision Making Patient is a 68-year-old male with history of dementia is presenting to the emergency Department with a chief complaint of fever, urinary bowel incont inence. With reports of patient had developed urinary bowel incontinence for the past 2-3 days. She also reports the patient has developed generalized weakness. Patient does report fevers and chills but never actually collected his temperature. Patient is responsive but a poor historian. is able to fill in the history. Patient does fit source criteria for sepsis. Appropriate Labs obtained. Patient does have a large anion gap with low carbon dioxide. Venous blood gas pending. UA is unremarkable. Chest x-ray is indicative of a possible pneumothorax or could be a skin fold. Chest x-ray is also indicative of atypical pneumonia. Patient does have a history of brain lesions and CT of the brain obtained that is negative. Chest CT pending. Patient will be admitted based on sepsis protocol. patient good rectal tone and does not have any numbness based on physical examination in the groin region low concern for cauda equina due to urinary bowel incontinence. Patient given fluids, antipyretics, Rocephin, azithromycin and vancomycin. Dr. Rojas also examined the patient and is in agreement with the treatment plan. Dr. Nino's admitting physician. Dr. Srinivasan consulted - Lab Data Result diagrams: 01/16/19 12:57 01/16/19 12:57 Lab Results 01/16/19 01/16/19 01/16/19 Range/Units 12:57 12:57 12:57 WBC 10.5 (3.8-10.6) k/uL RBC 3.51 L (4.30-5.90) m/uL Hgb 13.1 (13.0-17.5) gm/dL Hct 40.6 (39.0-53.0) % MCV 115.6 H (80.0-100.0) fL MCH 37.3 H (25.0-35.0) pg MCHC 32.3 (31.0-37.0) g/dL RDW 13.1 (11.5-15.5) % Plt Count 256 (150-450) k/uL Neutrophils % 73 % Lymphocytes % 18 % Monocytes % 7 % Eosinophils % 1 % Basophils % 0 % Neutrophils # 7.6 (1.3-7.7) k/uL Lymphocytes # 1.8 (1.0-4.8) k/uL Monocytes # 0.7 (0-1.0) k/uL Eosinophils # 0.1 (0-0.7) k/uL Basophils # 0.0 (0-0.2) k/uL Manual Slide Review Performed Macrocytosis Marked A Sodium 146 H (137-145) mmol/L Potassium 4.5 (3.5-5.1) mmol/L Chloride 120 H (98-107) mmol/L Carbon Dioxide 13 L (22-30) mmol/L Anion Gap 13 mmol/L BUN 31 H (9-20) mg/dL Creatinine 1.54 H (0.66-1.25) mg/dL Est GFR (CKD-EPI)AfAm 54 (>60 ml/min/1.73 sqM) Est GFR (CKD-EPI)NonAf 46 (>60 ml/min/1.73 sqM) Glucose 107 H (74-99) mg/dL Plasma Lactic Acid Martínez 1.3 (0.7-2.0) mmol/L Calcium 10.6 H (8.4-10.2) mg/dL Total Bilirubin 0.4 (0.2-1.3) mg/dL AST 31 (17-59) U/L ALT 26 (21-72) U/L Alkaline Phosphatase 52 (38-126) U/L Total Protein 7.9 (6.3-8.2) g/dL Albumin 4.7 (3.5-5.0) g/dL Urine Color Urine Appearance (Clear) Urine pH (5.0-8.0) Ur Specific Alden (1.001-1.035) Urine Protein (Negative) Urine Glucose (UA) (Negative) Urine Ketones (Negative) Urine Blood (Negative) Urine Nitrite (Negative) Urine Bilirubin (Negative) Urine Urobilinogen (<2.0) mg/dL Ur Leukocyte Esterase (Negative) Influenza Type A RNA (Not Detectd) Influenza Type B (PCR) (Not Detectd) 01/16/19 01/16/19 Range/Units 14:00 15:15 WBC (3.8-10.6) k/uL RBC (4.30-5.90) m/uL Hgb (13.0-17.5) gm/dL Hct (39.0-53.0) % MCV (80.0-100.0) fL MCH (25.0-35.0) pg MCHC (31.0-37.0) g/dL RDW (11.5-15.5) % Plt Count (150-450) k/uL Neutrophils % % Lymphocytes % % Monocytes % % Eosinophils % % Basophils % % Neutrophils # (1.3-7.7) k/uL Lymphocytes # (1.0-4.8) k/uL Monocytes # (0-1.0) k/uL Eosinophils # (0-0.7) k/uL Basophils # (0-0.2) k/uL Manual Slide Review Macrocytosis Sodium (137-145) mmol/L Potassium (3.5-5.1) mmol/L Chloride (98-107) mmol/L Carbon Dioxide (22-30) mmol/L Anion Gap mmol/L BUN (9-20) mg/dL Creatinine (0.66-1.25) mg/dL Est GFR (CKD-EPI)AfAm (>60 ml/min/1.73 sqM) Est GFR (CKD-EPI)NonAf (>60 ml/min/1.73 sqM) Glucose (74-99) mg/dL Plasma Lactic Acid Martínez (0.7-2.0) mmol/L Calcium (8.4-10.2) mg/dL Total Bilirubin (0.2-1.3) mg/dL AST (17-59) U/L ALT (21-72) U/L Alkaline Phosphatase (38-126) U/L Total Protein (6.3-8.2) g/dL Albumin (3.5-5.0) g/dL Urine Color Light Yellow Urine Appearance Clear (Clear) Urine pH 5.5 (5.0-8.0) Ur Specific Alden 1.012 (1.001-1.035) Urine Protein Trace H (Negative) Urine Glucose (UA) Negative (Negative) Urine Ketones Negative (Negative) Urine Blood Negative (Negative) Urine Nitrite Negative (Negative) Urine Bilirubin Negative (Negative) Urine Urobilinogen <2.0 (<2.0) mg/dL Ur Leukocyte Esterase Negative (Negative) Influenza Type A RNA Not Detected (Not Detectd) Influenza Type B (PCR) Not Detected (Not Detectd) 01/16/19 15:21 Sinus tachycardia with first-degree AV block. No ST elevation Ventricular rate 101, [place] interval 212, QRS duration 70, QT/QTc 33/438, Disposition Clinical Impression: Pneumonia Disposition: HOME SELF-CARE Condition: Stable Instructions (If sedation given, give patient instructions): Fever in Adults (ED) Additional Instructions: Patient will be admitted Is patient prescribed a controlled substance at d/c from ED?: No Referrals: Kiet Chester MD [Primary Care Provider] - 1-2 days Time of Disposition: 17:36
[2019-01-16 13:55] LABS: Albumin 4.7 g/dL (3.5-5.0); Calcium 10.6 mg/dL (8.4-10.2); Potassium 4.5 mmol/L (3.5-5.1); Total Bilirubin 0.4 mg/dL (0.2-1.3); Total Protein 7.9 g/dL (6.3-8.2)
[2019-01-16 14:11] LABS: Basophils % (A) 0 %; Eosinophils # (A) 0.1 k/uL (0-0.7); Eosinophils % (A) 1 %; HCT 40.6 % (39.0-53.0); HGB 13.1 gm/dL (13.0-17.5); Lymphocytes # (A) 1.8 k/uL (1.0-4.8); Lymphocytes % (A) 18 %; MCH 37.3 pg (25.0-35.0); MCHC 32.3 g/dL (31.0-37.0); MCV 115.6 fL (80.0-100.0); Macrocytosis Marked; Mean Platelet Volume 7.1; Monocytes # (A) 0.7 k/uL (0-1.0); Monocytes % (A) 7 %; Neutrophils # (A) 7.6 k/uL (1.3-7.7); Neutrophils % (A) 73 %; Platelet Count 256 k/uL (150-450); RBC 3.51 m/uL (4.30-5.90); RDW 13.1 % (11.5-15.5); WBC 10.5 k/uL (3.8-10.6)
[2019-01-16 14:22] LABS: Appearance,Urine Clear (Clear); Bilirubin,Urine Negative (Negative); Blood,Urine Negative (Negative); Color,Urine Light Yellow; Glucose,Urine (UA) Negative (Negative); Ketones,Urine Negative (Negative); Leukocyte Esterase,Urine Negative (Negative); Nitrite,Urine Negative (Negative); PH, Urine 5.5 (5.0-8.0); Protein,Urine Trace (Negative); Specific Gravity,Urine 1.012 (1.001-1.035); Urobilinogen,Urine <2.0 mg/dL (<2.0)
--- NOTE | 2019-01-16 14:50 | XR ---
EXAMINATION TYPE: XR chest 2V DATE OF EXAM: 01/16/2019 COMPARISON: 03/24/2017 HISTORY: Fever and cough TECHNIQUE: Frontal and lateral views of the chest are obtained. FINDINGS: Questionable skinfold versus less likely pneumothorax on the right. Repeat radiograph with inspiratory and expiratory films are recommended. New patchy interstitial opacity in the left upper l katrina. Remainder the lungs are well aerated with changes of COPD including pulmonary per inflation and biapical lucency. Cardiomediastinal silhouette is within normal limits. Osseous structures display ge neralized demineralization with mild degenerative changes of the spine. No sizable pleural effusion. IMPRESSION: 1. Curvilinear density over the right lateral upper lung is suspected to represent a skinfold althoug h pneumothorax isn't possible. Repeat radiograph with inspiratory and expiratory images are recommend ed. 2. New linear interstitial opacity in the left upper lobe. Atypical pneumonia could be considered giv en the focality.
--- NOTE | 2019-01-16 15:54 | CT ---
EXAMINATION TYPE: CT brain wo con DATE OF EXAM: 01/16/2019 COMPARISON: 11/05/2018 INDICATION: Altered mental status. DLP: 1063.4 mGycm, Automated exposure control for dose reduction was used. CONTRAST: None CT of the brain is performed utilizing 3 mm thick sections through the posterior fossa and 3 mm thick sections through the remaining calvarium. Study is performed within 24 hours of arrival to the hosp ital. No abnormal hyperdensity is present to suggest an acute intracranial hemorrhage. No mass lesion is evident. No acute infarcts are evident. There is also hypodensity within the right parietal-occipital region m ay be prior infarct or encephalomalacia. Ventricles and sulci are appropriate for the patient age. Paranasal sinuses and mastoid air cells within the [id number] are clear. IMPRESSIONS: 1. No acute intracranial process. 2. Old white matter changes in the right parietal-occipital junction.
[2019-01-16] MEDS ORDERED: RX INFO: IV CONTRAST WAS GIVEN 1 EACH MISC MISCELLANE PRN (16:12)
[2019-01-16] MEDS ORDERED: cefTRIAXone IN SWFI 1,000 MG/10 ML SYRINGE IVP STA (16:37)
[2019-01-16] MEDS ORDERED: ACETAMINOPHEN ORAL SUSP 160 MG/5 ML CUP PO ONE (16:47)
[2019-01-16] MEDS ORDERED: AZITHROMYCIN 500 MG in SODIUM CHLORIDE 0.9% 250 ML IVPB STA (17:08)
[2019-01-16] MEDS ORDERED: VANCOMYCIN IV PER PHARMACY 1 EACH MISC MISCELLANE PRN (17:15)
[2019-01-16] MEDS ORDERED: VANCOMYCIN 1,000 MG in SODIUM CHLORIDE 0.9% 250 ML IVPB STA (17:23)
[2019-01-16 17:48] LABS: VBG PH 7.32 (7.31-7.41)
--- NOTE | 2019-01-16 18:31 | CT ---
EXAMINATION TYPE: CT chest w con DATE OF EXAM: 01/16/2019 COMPARISON: 10/18/2018 HISTORY: Abnormal CXR CT DLP: 239 mGycm Automated exposure control for dose reduction was used. CONTRAST: CT scan of the chest is performed with IV Contrast, patient injected with 100 mL of Isovue 300. FINDINGS: There is diffuse pulmonary emphysema. There is airspace consolidation and atelectasis in the right pa raspinal right lower lobe. There is mild atelectasis and scarring in the left posterior lung base. Th ere is no pleural effusion. Heart size is normal. There is no pericardial effusion. There is no media stinal adenopathy. There are no hilar masses. Thoracic aorta is atheromatous. Ascending aorta measure s 3.5 cm. There is no aneurysm or dissection. There is minor spurring in the thoracic spine. There ar e a few small bowel air and fluid-filled loops in the left upper quadrant. IMPRESSION: Pulmonary emphysema. Infiltrate and atelectasis and scarring in both lower lobes as abov e. No suspicious pulmonary mass. Atherosclerotic vascular disease.
[2019-01-16] MEDS: DEXTROSE 5% IN WATER 1,000 ML with SODIUM BICARB (1 MEQ/ML) 150 ML IV SCH (20:42)
[2019-01-17] MEDS ORDERED: NALOXONE 0.4 MG/ML 1 ML VIAL IV PRN (00:32)
[2019-01-17 01:02] LABS: Glucose,Whole Blood 124 mg/dL (75-99)
[2019-01-17] MEDS: DEXTROSE 5% IN WATER 1,000 ML with SODIUM BICARB (1 MEQ/ML) 150 ML IV SCH (03:30)
--- NOTE | 2019-01-17 07:16 | XR ---
EXAMINATION TYPE: XR chest 1V DATE OF EXAM: 01/17/2019 CLINICAL HISTORY: Difficulty breathing progress study. TECHNIQUE: Single AP portable upright view of the chest is obtained. COMPARISON: Chest x-ray and CT chest from one day earlier. Older chest CT October 18, 2018. PET/CT July. FINDINGS: Background chronic emphysematous change redemonstrated. Persistent medial right basilar co nsolidation near right heart border. No new focal airspace opacity, pleural effusion, or pneumothorax seen bilaterally. Cardiac silhouette size remains within normal limits with atherosclerotic thoracic aorta. Osseous structures are intact. IMPRESSION: Overall stable findings, chronic emphysematous change with chronic medial right basilar consolidation/scarring. No new infiltrate is seen.
[2019-01-17 07:52] LABS: Basophils % (A) 0 %; Eosinophils # (A) 0.1 k/uL (0-0.7); Eosinophils % (A) 1 %; HCT 36.9 % (39.0-53.0); HGB 12.2 gm/dL (13.0-17.5); Lymphocytes # (A) 0.3 k/uL (1.0-4.8); Lymphocytes % (A) 3 %; MCH 37.8 pg (25.0-35.0); MCHC 33.1 g/dL (31.0-37.0); MCV 114.1 fL (80.0-100.0); Macrocytosis Marked; Mean Platelet Volume 7.3; Monocytes # (A) 0.4 k/uL (0-1.0); Monocytes % (A) 5 %; Neutrophils # (A) 7.3 k/uL (1.3-7.7); Neutrophils % (A) 89 %; Platelet Count 189 k/uL (150-450); RBC 3.24 m/uL (4.30-5.90); RDW 13.1 % (11.5-15.5); WBC 8.2 k/uL (3.8-10.6)
[2019-01-17] MEDS ORDERED: VANCOMYCIN 1,000 MG in SODIUM CHLORIDE 0.9% 250 ML IVPB SCH (08:00)
[2019-01-17 08:04] LABS: Calcium 9.8 mg/dL (8.4-10.2); Potassium 3.5 mmol/L (3.5-5.1)
[2019-01-17] MEDS ORDERED: ACETAMINOPHEN TAB 325 MG TAB PO PRN (08:54)
[2019-01-17] MEDS: hydrALAZINE HCL 50 MG TAB PO SCH ×4 (08:56→23:26)
[2019-01-17] MEDS: amLODIPine 5 MG TAB PO SCH (08:56)
[2019-01-17] MEDS ORDERED: FAMOTIDINE 20 MG TAB PO SCH (09:00)
[2019-01-17] MEDS ORDERED: PANTOPRAZOLE 40 MG/10 ML VIAL IV SCH (09:00)
[2019-01-17] MEDS ORDERED: DEXTROSE 5% IN WATER 1,000 ML IV ONE (10:13)
[2019-01-17] MEDS: DIVALPROEX 500 MG TABLET.DR PO SCH ×2 (10:41→21:48)
[2019-01-17] MEDS: HEPARIN SODIUM,PORCINE 5,000 UNIT/ML 1 ML VIAL SQ SCH ×2 (10:41→17:19)
[2019-01-17] MEDS: ATORVASTATIN 40 MG TAB PO SCH (10:41)
[2019-01-17 12:10] LABS: Glucose,Whole Blood 134 mg/dL (75-99)
--- NOTE | 2019-01-17 15:15 | P.CNPUL ---
History of Present Illness Consult date: 01/17/19 Reason for consult: dyspnea Chief complaint: Dyspnea and generalized weakness and fevers History of present illness: A 68-year-old male patient with known history of dementia and seizure disorder who was hospitalized yesterday because of fever and generalized weakness. The patient is aware poor historian. Overnight he becomes slightly more restless and short of breath and for that reason he got transferred to the intensive care unit. Apparently his weakness is generalized. He has altered mentation and confusion and urinary and bowel incontinence. He has been unable to take his medications over the past few days. No reported aspiration. He did have some difficulties in swallowing earlier however based on the reported history has been no aspiration. On today's evaluation, the patient denies having any w orsening shortness of breath cough chest tightness or wheezing. He is resting comfortably in bed. He has history of depression. History of chronic smoking along with history of COPD. A computed tomography scan of the chest was done yesterday and showed a diffuse emphysema and an area of atelectasis in the right paraspinal right lower lobe that was seen on previous CAT scan of the chest from September 2018. Also, the patient had a PET scan that was done on 08/03/2018 that showed no metabolic activity to indicate any malignancy. The right lower lobe pulmonary abnormalities did not show any significant metabolic uptake on the PET scan. Note that there is no evidence of any mediastinal lymphadenopathy. CAT scan of the brain showed no acute abnormalities and the patient has an old white matter change in the right parieto-occipital junction. He has a normal echocardiogram with an ejection fraction of 60-65%. No valvular abnormalities. Her white cell count is not elevated. The rest of the blood work and electrodes are all within normal limits. The UA was negative. Influenza screen was negative. Urine drug screen was positive for tricyclics and benzodiazepines. Valproic acid level was low at 20.7. Review of Systems Constitutional: Reports fatigue, Reports fever, Reports poor appetite, Reports weakness, Reports weight loss Eyes: bilateral blurred vision, denies as per HPI, denies bulging eye, denies decreased vision, denies diplopia, denies discharge, denies dry eye, denies irritation, denies itching, denies pain, denies photophobia, denies loss of peripheral vision, denies loss of vision, denies tunnel vision/blind spots Ears: bilateral: decreased hearing, deny: ear discharge, earache, tinnitus Ears, nose, mouth and throat: Denies headache, Denies sore throat Breasts: absent: as per HPI, gynecomastia Cardiovascular: Reports shortness of breath Respiratory: Reports dyspnea Gastrointestinal: Reports loss of appetite Genitourinary: Reports as per HPI Musculoskeletal: Reports as per HPI Musculoskeletal: absent: ankle pain, ankle stiffness, ankle swelling Integumentary: Reports as per HPI Neurological: Reports confusion, Reports gait dysfunction, Reports weakness Psychiatric: Reports as per HPI Endocrine: Reports as per HPI, Reports fatigue Hematologic/Lymphatic: Reports as per HPI Allergic/Immunologic: Reports as per HPI Past Medical History Past Medical History: Hypertension, Seizure Disorder Additional Past Medical History / Comment(s): COPD, chronic right basilar area of atelectasis is not showing any metabolic uptake on a previous PET scan and th is is likely a benign abnormality, carotid artery stenosis high-grade approximately 6-70% on the right, hypertension, chronic pain, chronic smoking, cachexia, seizures, history of an abnormal brain lesion, dementia, hypertension History of Any Multi-Drug Resistant Organisms: None Reported Past Surgical History: No Surgical Hx Reported Additional Past Surgical History / Comment(s): foot surgery Past Psychological History: No Psychological Hx Reported Smoking Status: Current every day smoker Past Alcohol Use History: None Reported Additional Past Alcohol Use History / Comment(s): She is a smoker of more than 2 packs per day 50 years. There is no known of marijuana, street drug or alcohol use. Past Drug Use History: None Reported - Past Family History Father Additional Family Medical History / Comment(s): Both parents are but family members are unable to provide any information regarding his family medical history. Patient also has 2 brothers and one sister. There are 2 sons and one adopted daughter. Medications and Allergies Home Medications Medication Instructions Recorded Confirmed Type Baclofen 10 mg PO BID PRN 03/24/17 01/16/19 History Acetaminophen [Tylenol Arthritis] 650 mg PO Q4H PRN 01/16/19 01/16/19 History Atorvastatin [Lipitor] 40 mg PO DAILY 01/16/19 01/16/19 History Budesonide [Pulmicort] 0.5 mg INHALATION RT-BID 01/16/19 01/16/19 History Divalproex Sodium [Depakote] 500 mg PO BID 01/16/19 01/16/19 History Famotidine [Pepcid] 20 mg PO DAILY 01/16/19 01/16/19 History Gemfibrozil [Lopid] 600 mg PO AC-BID 01/16/19 01/16/19 History Ipratropium-Albuterol Nebulize 3 ml INHALATION RT-QID 01/16/19 01/16/19 History [Duoneb 0.5 mg-3 mg/3 ml Soln] Irbesartan [Avapro] 300 mg PO DAILY 01/16/19 01/16/19 History Mirtazapine [Remeron] 15 mg PO HS 01/16/19 01/16/19 History amLODIPine [Norvasc] 5 mg PO BID 01/16/19 01/16/19 History hydrALAZINE HCL [Apresoline] 100 mg PO TID 01/16/19 01/16/19 History Allergies Allergy/AdvReac Type Severity Reaction Status Date / Time No Known Allergies Allergy Verified 01/16/19 17:05 Physical Exam Vitals: Vital Signs Temp Pulse Resp BP Pulse Ox 01/17/19 13:00 94 23 103/53 94 L 01/17/19 12:00 99.3 F 98 16 108/54 94 L 01/17/19 11:00 104 H 21 110/66 93 L 01/17/19 10:00 108 H 23 134/56 92 L 01/17/19 09:00 102 H 16 119/54 94 L 01/17/19 08:00 100.1 F H 99 23 133/56 93 L 01/17/19 06:00 101 H 17 142/66 98 01/17/19 05:00 107 H 21 168/47 97 01/17/19 04:00 98.4 F 123 H 16 143/66 98 01/17/19 03:00 114 H 18 148/68 98 01/17/19 02:00 117 H 16 151/67 98 01/17/19 01:29 97 01/17/19 01:00 120 H 20 133/79 98 01/17/19 00:39 98.7 F 115 H 20 97 01/17/19 00:00 99.8 F H 77 16 167/67 96 01/16/19 23:00 88 16 154/67 96 01/16/19 21:52 134/63 99 10/17/19 20:46 100.6 F H 110 H 16 145/82 99 01/16/19 20:00 113 H 16 147/63 99 01/16/19 19:49 116 H 16 154/70 99 01/16/19 19:00 99.9 F H 119 H 16 164/69 99 01/16/19 18:00 121 H 16 157/66 98 01/16/19 17:00 112 H 16 150/68 97 01/16/19 15:23 100.7 F H 117 H 18 145/70 94 L Intake and Output 01/17/19 01/17/19 01/17/19 06:59 14:59 22:59 Intake Total 1750 Output Total 450 400 Balance 1300 -400 Intake: IV 750 Dextrose 5% in Water 1, 750 000 ml @ 125 mls/hr IV . Q9H12M RAYMOND with Sodium Bicarb (1 Meq/ml) 150 ml Rx#:[id number] Amount of Fluid Infused ( 1000 ml) Output: Urine 450 400 Other: Voiding Method Indwelling Catheter Weight 48.398 kg GENERAL EXAM: frail, cachectic. The patient is alert and oriented 1 only. He is communicating. He is extremely poor historian. Looks very much debilitated and in poor health status. Head exam was generally normal. There was no scleral icterus or corneal arcus. Mucous membranes were moist. Neck was supple and without jugular venous distension, thyromegaly, or carotid bruits. Carotids were easily palpable bilaterally. There was no adenopathy. NOSE: Clear with pink turbinates. THROAT: No erythema or exudates. NECK: No masses, no JVD. CHEST: Sounds are diminished bilaterally along with some scattered expiratory wheezes throughout the lung wick.. CVS: S1 and S2 normal with no audible murmur, regular rhythm. ABDOMEN: No hepatosplenomegaly, normal bowel sounds, no guarding or rigidity. SPINE: No scoliosis or deformity SKIN: No rashes Examination of the extremities revealed easily palpable radial, femoral and pedal pulses. There was no cyanosis, clubbing or edema. Neurologically the patient is awake and he follows some simple verbal commands. Response to painful stimulation. His pupils are equal reactive to light. Does not have any lateralizing weakness. Positive gag. Results - Laboratory Findings CBC and BMP: 01/17/19 05:12 01/17/19 05:12 Abnormal lab findings: Abnormal Labs 01/16/19 01/16/19 01/16/19 12:57 12:57 14:00 RBC 3.51 L Hgb Hct MCV 115.6 H MCH 37.3 H Lymphocytes # Macrocytosis Marked A VBG pCO2 VBG HCO3 Sodium 146 H Chloride 120 H Carbon Dioxide 13 L BUN 31 H Creatinine 1.54 H Glucose 107 H POC Glucose (mg/dL) Plasma Lactic Acid Martínez Calcium 10.6 H Urine Protein Trace H 01/16/19 01/16/19 01/17/19 17:30 21:45 00:49 RBC Hgb Hct MCV MCH Lymphocytes # Macrocytosis VBG pCO2 27 L VBG HCO3 14 L Sodium Chloride Carbon Dioxide BUN Creatinine Glucose POC Glucose (mg/dL) 124 H Plasma Lactic Acid Martínez 0.5 L Calcium Urine Protein 01/17/19 01/17/19 01/17/19 05:12 05:12 11:58 RBC 3.24 L Hgb 12.2 L Hct 36.9 L MCV 114.1 H MCH 37.8 H Lymphocytes # 0.3 L Macrocytosis Marked A VBG pCO2 VBG HCO3 Sodium 146 H Chloride 113 H Carbon Dioxide 21 L BUN Creatinine Glucose 147 H POC Glucose (mg/dL) 134 H Plasma Lactic Acid Mart[place]nez Calcium Urine Protein - Diagnostic Findings CT scan - chest: image reviewed Assessment and Plan Plan: 1 generalized weakness part of overall medical debility/dementia. Underlying infection is to be considered as the patient is having episodic low-grade fever and is currently under workup in progress and the fever. 2 right lower lobe atelectatic changes seen on previous CAT scan of the chest and seen on a previous PET scan showing no metabolic activity. This is likely benign. 3 COPD inactive and stable. 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 Active the fever pattern. The patient will be taken off the vancomycin and Zithromax. He'll be kept on Rocephin as an empiric antibiotic coverage pending further cultures. Put the patient on DuoNeb nebulized treatments around the clock. Resume all medications. Aspiration precautions. Unfortunately his current functional status is extremely debilitated and poor. We'll ask this patient to be chest at the medical floor as his hemodynamics is stable and there are no ongoing active issues to warrants ICU care at this point in time. I will leave the rest of the management up to medicine. Pulmonary standpoint, the patient has COPD. He needs to be provided a incentive spirometer. Smoking cessation. Right lower lobe atelectatic change was noted and no need for any further investigation based on a stability that was seen on the CAT scan follow-up and based on negative PET scan.
--- NOTE | 2019-01-17 15:53 | P.HPIM ---
History of Present Illness H&P Date: 01/17/19 Chief Complaint: Fever shortness of breath This is a 68-year-old male patient of Dr. Chester with past medical history of hypertension, gastroesophageal reflux disease, chronic pain, depression and anxiety, dementia, tobacco use and dependence COPD extensive paraseptal incentive lobular. 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 Surgery performed at [facility]. He now presents emergency room secondary to fever, shortness of breath, and generalized weakness. Patient was able to provide most of the history today, accompanied by his son at bedside. Patient cannot provide medical relevance of his history,. Patient has had difficulties in swallowing, however there is no prior history of aspiration, has not been able to take his routine medications, comes in with altered mentation, also had urinary and bowel incontinence. In the emergency room, he had bilateral upper lobe infiltrates on chest x-ray,, CAT scan of the brain showed no acute abnormalities, has old white matter change in the right right occipital junction, has echocardiogram with EF of 6065%, no valvular abnormalities, urinalysis negative, influenza test negative. Patient has a urine drug screen that is positive for trichomoniasis cyclics and benzodiazepines, was admitted to ICU consultation with Dr. Srinivasan. No ABGs were done, pCO2 on admission was 13, potassium was 4.5 sodium 146 lactic acid 1.3, WBC count of 10.5 MCV of 115. Patient admitted for pneumonia cannot rule out aspiration, started in IV antibiotics, Zithromax and Rocephin Review of Systems Constitutional: Reports as per HPI, Reports anorexia, Denies chills, Denies chronic headaches, Denies chronic pain, Denies daytime sleepiness, Denies fat igue, Denies fever, Denies lethargy, Denies malaise, Denies night sweats, Denies poor appetite, Denies sweats, Denies weakness, Denies weight gain, Denies weight loss Ears, nose, mouth and throat: Reports as per HPI, Denies ant. neck pain, Denies bleeding gums, Denies dental pain, Denies dysphagia, Denies epistaxis, Denies headache, Denies hoarseness, Denies mouth pain, Denies nasal congestion, Denies nasal discharge, Denies neck fullness/pressure, Denies neck lump, Denies nose pain, Denies odynophagia, Denies post-nasal drip, Denies sinus pain, Denies sinus pressure, Denies swelling in mouth, Denies swelling in throat, Denies sore throat, Denies vertigo, Denies voice changes Cardiovascular: Reports as per HPI, Denies chest pain, Denies claudication, Denies decreased exercise tolerance, Denies dyspnea on exertion, Denies edema, Denies high blood pressure, Denies irregular heart beat, Denies leg edema, Denies lightheadedness, Denies orthopnea, Denies palpitations, Denies paroxysmal nocturnal dyspnea, Denies phlebitis, Denies rapid heart beat, Denies shortness of breath, Denies syncope Respiratory: Reports as per HPI, Reports cough Gastrointestinal: Reports as per HPI, Denies abdominal pain, Denies belching, Denies bloating, Denies BRBPR, Denies change in bowel habits, Denies coffee ground emesis, Denies constipation, Denies diarrhea, Denies dyspepsia, Denies early satiety, Denies excessive gas, Denies heartburn, Denies hematemesis, Denies hematochezia, Denies indigestion, Denies jaundice, Denies lactose intolerance, Denies loss of appetite, Denies melena, Denies nausea, Denies vomiting Genitourinary: Reports as per HPI, Denies decreased libido, Denies difficulties fathering child, Denies discharge, Denies dysuria, Denies erectile dysfunction, Denies flank pain, Denies genital pain, Denies genital sores, Denies hematuria, Denies impotence, Denies incontinence, Denies kidney stones, Denies nocturia, Denies polyuria, Denies testicular lump, Denies testicular pain, Denies urinary frequency, Denies urinary hesitancy, Denies urinary retention Musculoskeletal: Reports as per HPI, Denies arm numbness/tingling, Denies atro phy, Denies fractures, Denies frequent falls, Denies gait dysfunction, Denies hot joints, Denies leg numbness/tingling, Denies limitation of motion, Denies loss of height, Denies low back pain, Denies morning stiffness, Denies muscle cramps, Denies muscle weakness, Denies myalgias, Denies neck pain, Denies neck stiffness, Denies prior amputations, Denies redness of joints, Denies shooting arm pain, Denies shooting leg pain Integumentary: Reports as per HPI, Denies acne, Denies boils, Denies brittle nails, Denies change in hair/nails, Denies color changes, Denies darkening of skin, Denies depigmentation, Denies dryness, Denies foot/leg ulcers, Denies growths, Denies hirsutism, Denies lesions, Denies onychomycosis, Denies pruritus, Denies rash, Denies sores, Denies striae, Denies unusual bruising, Denies wounds Neurological: Reports as per HPI, Reports memory loss, Reports weakness, Denies aphasia, Denies ataxia, Denies balance difficulties, Denies burning pain, Denies change in mentation, Denies change in smell/taste, Denies change in speech, Denies confusion, Denies convulsions, Denies double vision, Denies gait dysfunction, Denies head injury, Denies headaches, Denies hearing difficulties, Denies lack of coordination, Denies loss of vision, Denies migraines, Denies motor disturbance, Denies numbness, Denies paralysis, Denies paresthesias, Denies seizures, Denies sensory deficit, Denies spasticity, Denies syncope, Denies tic, Denies tingling, Denies transient paralysis, Denies tremors, Denies vertigo, Denies visual changes Psychiatric: Reports as per HPI, Reports memory loss Endocrine: Reports as per HPI, Denies cold intolerance, Denies deepening of the voice, Denies excessive sweating, Denies excessive thirst, Denies fatigue, Denies flushing, Denies heat intolerance, Denies high blood sugars, Denies increase in ring/shoe/hat size, Denies low blood sugars, Denies nocturia, Denies palpitations, Denies polydipsia, Denies polyphagia, Denies polyuria, Denies proptosis, Denies recent glucocorticoid use, Denies thyroid mass, Denies weight change Hematologic/Lymphatic: Reports as per HPI Allergic/Immunologic: Reports as per HPI Past Medical History Past Medical History: Hypertension, Seizure Disorder Additional Past Medical History / Comment(s): lesions on brain 2017 that were bleeding History of Any Multi-Drug Resistant Organisms: None Reported Past Surgical History: No Surgical Hx Reported Additional Past Surgical History / Comment(s): foot surgery Past Psychological History: No Psychological Hx Reported Smoking Status: Current every day smoker Past Alcohol Use History: None Reported Additional Past Alcohol Use History / Comment(s): She is a smoker of more than 2 packs per day 50 years. There is no known of marijuana, street drug or alcohol use. Past Drug Use History: None Reported - Past Family History Father Additional Family Medical History / Comment(s): Both parents are but family members are unable to provide any information regarding his family medical history. Patient also has 2 brothers and one sister. There are 2 sons and one adopted daughter. Medications and Allergies Home Medications Medication Instructions Recorded Confirmed Type Baclofen 10 mg PO BID PRN 03/24/17 01/16/19 History Acetaminophen [Tylenol Arthritis] 650 mg PO Q4H PRN 01/16/19 01/16/19 History Atorvastatin [Lipitor] 40 mg PO DAILY 01/16/19 01/16/19 History Budesonide [Pulmicort] 0.5 mg INHALATION RT-BID 01/16/19 01/16/19 History Divalproex Sodium [Depakote] 500 mg PO BID 01/16/19 01/16/19 History Famotidine [Pepcid] 20 mg PO DAILY 01/16/19 01/16/19 History Gemfibrozil [Lopid] 600 mg PO AC-BID 01/16/19 01/16/19 History Ipratropium-Albuterol Nebulize 3 ml INHALATION RT-QID 01/16/19 01/16/19 History [Duoneb 0.5 mg-3 mg/3 ml Soln] Irbesartan [Avapro] 300 mg PO DAILY 01/16/19 01/16/19 History Mirtazapine [Remeron] 15 mg PO HS 01/16/19 01/16/19 History amLODIPine [Norvasc] 5 mg PO BID 01/16/19 01/16/19 History hydrALAZINE HCL [Apresoline] 100 mg PO TID 01/16/19 01/16/19 History Allergies Allergy/AdvReac Type Severity Reaction Status Date / Time No Known Allergies Allergy Verified 01/16/19 17:05 Physical Exam Vitals: Vital Signs Temp Pulse Resp BP Pulse Ox 01/17/19 13:00 94 23 103/53 94 L 01/17/19 12:00 99.3 F 98 16 108/54 94 L 01/17/19 11:00 104 H 21 110/66 93 L 01/17/19 10:00 108 H 23 134/56 92 L 01/17/19 09:00 102 H 16 119/54 94 L 01/17/19 08:00 100.1 F H 99 23 133/56 93 L 01/17/19 06:00 101 H 17 142/66 98 01/17/19 05:00 107 H 21 168/47 97 01/17/19 04:00 98.4 F 123 H 16 143/66 98 01/17/19 03:00 114 H 18 148/68 98 01/17/19 02:00 117 H 16 151/67 98 01/17/19 01:29 97 01/17/19 01:00 120 H 20 133/79 98 01/17/19 00:39 98.7 F 115 H 20 97 01/17/19 00:00 99.8 F H 77 16 167/67 96 01/16/19 23:00 88 16 154/67 96 01/16/19 21:52 134/63 99 01/16/19 20:46 100.6 F H 110 H 16 145/82 99 01/16/19 20:00 113 H 16 147/63 99 01/16/19 19:49 116 H 16 154/70 99 01/16/19 19:00 99.9 F H 119 H 16 164/69 99 01/16/19 18:00 121 H 16 157/66 98 01/16/19 17:00 112 H 16 150/68 97 01/16/19 15:23 100.7 F H 117 H 18 145/70 94 L Intake and Output 01/17/19 01/17/19 01/17/19 06:59 14:59 22:59 Intake Total 1750 Output Total 450 400 Balance 1300 -400 Intake: IV 750 Dextrose 5% in Water 1, 750 000 ml @ 125 mls/hr IV . Q9H12M RAYMOND with Sodium Bicarb (1 Meq/ml) 150 ml Rx#:[id number] Amount of Fluid Infused ( 1000 ml) Output: Urine 450 400 Other: Voiding Method Indwelling Catheter Weight 48.398 kg - Constitutional General appearance: cooperative, no acute distress - EENT Eyes: anicteric sclerae, EOMI, PERRLA, dentition normal, normal appearance ENT: NA/AT, normal oropharynx - Neck Neck: normal ROM - Respiratory Respiratory: bilateral: CTA, diminished, negative: dullness, rales, rhonchi, wheezing, prolonged expiration, prolonged inspiration - Cardiovascular Rhythm: regular Heart sounds: normal: S1, S2 Abnormal Heart Sounds: no systolic murmur, no diastolic murmur, no rub, no S3 Gallop, no S4 Gallop, no click, no other - Gastrointestinal General gastrointestinal: normal bowel sounds, soft - Integumentary Integumentary: decreased turgor, normal - Neurologic Neurologic: CNII-XII intact - Musculoskeletal Musculoskeletal: generalized weakness, strength equal bilaterally - Psychiatric Psychiatric: A&O x's 3, appropriate affect Results CBC & Chem 7: 01/17/19 05:12 01/17/19 05:12 Labs: Abnormal Lab Results - Last 24 Hours (Table) 01/16/19 01/16/19 01/17/19 Range/Units 17:30 21:45 00:49 RBC (4.30-5.90) m/uL Hgb (13.0-17.5) gm/dL Hct (39.0-53.0) % MCV (80.0-100.0) fL MCH (25.0-35.0) pg Lymphocytes # (1.0-4.8) k/uL Macrocytosis VBG pCO2 27 L (37-51) mmHg VBG HCO3 14 L (24-28) mmol/L Sodium (137-145) mmol/L Chloride (98-107) mmol/L Carbon Dioxide (22-30) mmol/L Glucose (74-99) mg/dL POC Glucose (mg/dL) 124 H (75-99) mg/dL Plasma Lactic Acid Martínez 0.5 L (0.7-2.0) mmol/L 01/17/19 01/17/19 01/17/19 Range/Units 05:12 05:12 11:58 RBC 3.24 L (4.30-5.90) m/uL Hgb 12.2 L (13.0-17.5) gm/dL Hct 36.9 L (39.0-53.0) % MCV 114.1 H (80.0-100.0) fL MCH 37.8 H (25.0-35.0) pg Lymphocytes # 0.3 L (1.0-4.8) k/uL Macrocytosis Marked A VBG pCO2 (37-51) mmHg VBG HCO3 (24-28) mmol/L Sodium 146 H (137-145) mmol/L Chloride 113 H (98-107) mmol/L Carbon Dioxide 21 L (22-30) mmol/L Glucose 147 H (74-99) mg/dL POC Glucose (mg/dL) 134 H (75-99) mg/dL Plasma Lactic Acid Martínez (0.7-2.0) mmol/L Laboratory Results WBC 8.2 k/uL (3.8-10.6) 01/17/19 05:12 RBC 3.24 m/uL (4.30-5.90) L 01/17/19 05:12 Hgb 12.2 gm/dL (13.0-17.5) L 01/17/19 05:12 Hct 36.9 % (39.0-53.0) L 01/17/19 05:12 MCV 114.1 fL (80.0-100.0) H 01/17/19 05:12 MCH 37.8 pg (25.0-35.0) H 01/17/19 05:12 MCHC 33.1 g/dL (31.0-37.0) 01/17/19 05:12 RDW 13.1 % (11.5-15.5) 01/17/19 05:12 Plt Count 189 k/uL (150-450) 01/17/19 05:12 Neutrophils % 89 % 01/17/19 05:12 Lymphocytes % 3 % 01/17/19 05:12 Monocytes % 5 % 01/17/19 05:12 Eosinophils % 1 % 01/17/19 05:12 Basophils % 0 % 01/17/19 05:12 Neutrophils # 7.3 k/uL (1.3-7.7) 01/17/19 05:12 Lymphocytes # 0.3 k/uL (1.0-4.8) L 01/17/19 05:12 Monocytes # 0.4 k/uL (0-1.0) 01/17/19 05:12 Eosinophils # 0.1 k/uL (0-0.7) 01/17/19 05:12 Basophils # 0.0 k/uL (0-0.2) 01/17/19 05:12 Manual Slide Review Performed 01/16/19 12:57 Macrocytosis Marked A 01/17/19 05:12 VBG pH 7.32 (7.31-7.41) 01/16/19 17:30 VBG pCO2 27 mmHg (37-51) L 01/16/19 17:30 VBG HCO3 14 mmol/L (24-28) L 01/16/19 17:30 Sodium 146 mmol/L (137-145) H 01/17/19 05:12 Potassium 3.5 mmol/L (3.5-5.1) 01/17/19 05:12 Chloride 113 mmol/L (98-107) H 01/17/19 05:12 Carbon Dioxide 21 mmol/L (22-30) L 01/17/19 05:12 Anion Gap 12 mmol/L 01/17/19 05:12 BUN 19 mg/dL (9-20) 01/17/19 05:12 Creatinine 1.06 mg/dL (0.66-1.25) 01/17/19 05:12 Creatinine 1.08 mg/dL (0.66-1.25) 01/17/19 05:12 Est GFR (CKD-EPI)AfAm 82 (>60 ml/min/1.73 sqM) 01/17/19 05:12 Est GFR (CKD-EPI)AfAm 85 (>60 ml/min/1.73 sqM) 01/17/19 05:12 Est GFR (CKD-EPI)NonAf 71 (>60 ml/min/1.73 sqM) 01/17/19 05:12 Est GFR (CKD-EPI)NonAf 73 (>60 ml/min/1.73 sqM) 01/17/19 05:12 Glucose 147 mg/dL (74-99) H 01/17/19 05:12 POC Glucose (mg/dL) 134 mg/dL (75-99) H 01/17/19 11:58 POC Glu Interventional Physician ID Clarissa Bosotn 01/17/19 11:58 Plasma Lactic Acid Martínez 0.5 mmol/L (0.7-2.0) L 01/16/19 21:45 Calcium 9.8 mg/dL (8.4-10.2) 01/17/19 05:12 Total Bilirubin 0.4 mg/dL (0.2-1.3) 01/16/19 12:57 AST 31 U/L (17-59) 01/16/19 12:57 ALT 26 U/L (21-72) 01/16/19 12:57 Alkaline Phosphatase 52 U/L (38-126) 01/16/19 12:57 Total Protein 7.9 g/dL (6.3-8.2) 01/16/19 12:57 Albumin 4.7 g/dL (3.5-5.0) 01/16/19 12:57 Urine Color Light Yellow 01/16/19 14:00 Urine Appearance Clear (Clear) 01/16/19 14:00 Urine pH 5.5 (5.0-8.0) 01/16/19 14:00 Ur Specific [place] 1.012 (1.001-1.035) 01/16/19 14:00 Urine Protein Trace (Negative) H 01/16/19 14:00 Urine Glucose (UA) Negative (Negative) 01/16/19 14:00 Urine Ketones Negative (Negative) 01/16/19 14:00 Urine Blood Negative (Negative) 01/16/19 14:00 Urine Nitrite Negative (Negative) 01/16/19 14:00 Urine Bilirubin Negative (Negative) 01/16/19 14:00 Urine Urobilinogen <2.0 mg/dL (<2.0) 01/16/19 14:00 Ur Leukocyte Esterase Negative (Negative) 01/16/19 14:00 Influenza Type A RNA Not Detected (Not Detectd) 01/16/19 15:15 Influenza Type B (PCR) Not Detected (Not Detectd) 01/16/19 15:15 Thrombosis Risk Factor Assmnt - Choose All That Apply Each Factor Represents 1 point: Abnormal pulmonary function (COPD) Each Risk Factor Represents 2 Points: Age 61-74 years Thrombosis Risk Factor Assessment Total Risk Factor Score: 3 Thrombosis Risk Factor Assessment Level: Moderate Risk Assessment and Plan Plan: 1. SIRS, presenting with fever and cough, bilateral upper lobe infiltrates, suspicious for either micro-aspiration pneumonia, patient also has significant malnourishment, with BMI of 15, prior studies done at [facility], was QuantiFERON on gold negative, in 2018. Dietitian to see for nutrition, with supplementation, IV Rocephin and IV Zithromax, speech eval, with modified barium swallow, consult with pulmonary intensivists, Dr. Srinivasan. Sputum cultures to be done, blood cultures to be included. Urinalysis is negative screen. 2. Seizure disorder, with nonconvulsive type based on the view EEG [facility], maintained on Depakote 500 mg twice a day no changes made 3. Chronic hypertension, on hydralazine 100 mg 3 times a day, avapro on hold norvas 5 bid on hold, low bp 4. COPD, budesonide and albuterol to be given, not requiring any IV steroids at this time monitor for bronchospasms 5. Prior history of craniotomy for benign conditions, 2017april 07 History of generalized anxiety disorder and recurrent depression. 5. Gastroesophageal reflux disease and GI prophylaxis. Protonix. 6. Severe protein calorie malnutrition with BMI of 14. Patient will require protein supplementation., Prealbumin 7. DVT prophylaxis. Heparin 8. 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 Hyperlipidemia on Lipitor 40 no changes made continued Lopid 600 twice a day 10. Metabolic encephalopathy, patient to be seen by neurology, EEG of the brain 11. Medical psychosis, or elevated red blood cell volume, RBC folate and vitamin B12 to be done 8. CODE STATUS full code. Patient will be admitted to the hospital for a minimum of 3 night stay.
[2019-01-17] MEDS ORDERED: SODIUM CHLORIDE 0.9% 1,000 ML IV ONE (16:25)
--- NOTE | 2019-01-17 16:43 | P.CNNES ---
History of Present Illness Consult date: 01/17/19 Requesting physician: Sayda Nino Reason for Consult: AMS History of Present Illness: Patient is a 68-year-old male, who lives with his at home, was brought to the hospital for altered mental status. Patient has history of hypertension, depression, dementia, tobacco use, COPD and seizure disorder for which she is on Depakote 500 mg twice a day. Patient says that he came to the hospital because he was having dizziness, throwing up, not steady on the feet and fever for last 3-4 days. Electronic medical records state patient has generalized weakness, fever. He was noted to be short of breath therefore he was transferred to ICU. He was noted to have confusion, urinary and bowel incontinence. It was reported that he was not able to take his medication over the past few days. He has history of chronic tobacco use with COPD. Computed tomography scan of the chest showed pulmonary emphysema and infiltrate and atelectasis and scarring in both lower lobes. No suspicious pulmonary mass. Patient had weight loss. He had a PET scan performed July 2018 which was negative for any increased metabolic activity. Computed tomography scan of the head showed no acute abnormalities except for some old white matter change in the right parieto-occipital junction. He had a normal echocardiogram with EF of 60-65%. His urine drug screen is positive for tricyclics and benzo. Depakote level has not been checked. EKG showed sinus tachycardia with first-degree AV block. Left axis deviation. Patient denies alcohol use. Review of Systems On review of systems reviewed with the patient. Most of them as per HPI. Patient does have an episode of bowel and bladder incontinence. Past Medical History Past Medical History: Hypertension, Seizure Disorder Additional Past Medical History / Comment(s): lesions on brain 2017 that were bleeding History of Any Multi-Drug Resistant Organisms: None Reported Past Surgical History: No Surgical Hx Reported Additional Past Surgical History / Comment(s): foot surgery Past Psychological History: No Psychological Hx Reported Smoking Status: Current every day smoker Past Alcohol Use History: None Reported Additional Past Alcohol Use History / Comment(s): She is a smoker of more than 2 packs per day 50 years. There is no known of marijuana, street drug or alcohol use. Past Drug Use History: None Reported - Past Family History Father Additional Family Medical History / Comment(s): Both parents are but f amily members are unable to provide any information regarding his family medical history. Patient also has 2 brothers and one sister. There are 2 sons and one adopted daughter. Medications and Allergies Home Medications Medication Instructions Recorded Confirmed Type Baclofen 10 mg PO BID PRN 03/24/17 01/16/19 History Acetaminophen [Tylenol Arthritis] 650 mg PO Q4H PRN 01/16/19 01/16/19 History Atorvastatin [Lipitor] 40 mg PO DAILY 01/16/19 01/16/19 History Budesonide [Pulmicort] 0.5 mg INHALATION RT-BID 01/16/19 01/16/19 History Divalproex Sodium [Depakote] 500 mg PO BID 01/16/19 01/16/19 History Famotidine [Pepcid] 20 mg PO DAILY 01/16/19 01/16/19 History Gemfibrozil [Lopid] 600 mg PO AC-BID 01/16/19 01/16/19 History Ipratropium-Albuterol Nebulize 3 ml INHALATION RT-QID 01/16/19 01/16/19 History [Duoneb 0.5 mg-3 mg/3 ml Soln] Irbesartan [Avapro] 300 mg PO DAILY 01/16/19 01/16/19 History Mirtazapine [Remeron] 15 mg PO HS 01/16/19 01/16/19 History amLODIPine [Norvasc] 5 mg PO BID 01/16/19 01/16/19 History hydrALAZINE HCL [Apresoline] 100 mg PO TID 01/16/19 01/16/19 History Allergies Allergy/AdvReac Type Severity Reaction Status Date / Time No Known Allergies Allergy Verified 01/16/19 17:05 Physical Examination - Vital Signs Vital Signs: Vital Signs Temp Pulse Resp BP Pulse Ox 01/17/19 13:00 94 23 103/53 94 L 01/17/19 12:00 99.3 F 98 16 108/54 94 L 01/17/19 11:00 104 H 21 110/66 93 L 01/17/19 10:00 108 H 23 134/56 92 L 01/17/19 09:00 102 H 16 119/54 94 L 01/17/19 08:00 100.1 F H 99 23 133/56 93 L 01/17/19 06:00 101 H 17 142/66 98 01/17/19 05:00 107 H 21 168/47 97 01/17/19 04:00 98.4 F 123 H 16 143/66 98 01/17/19 03:00 114 H 18 148/68 98 01/17/19 02:00 117 H 16 151/67 98 01/17/19 01:29 97 01/17/19 01:00 120 H 20 133/79 98 01/17/19 00:39 98.7 F 115 H 20 97 01/17/19 00:00 99.8 F H 77 16 167/67 96 01/16/19 23:00 88 16 154/67 96 01/16/19 21:52 134/63 99 01/16/19 20:46 100.6 F H 110 H 16 145/82 99 01/16/19 20:00 113 H 16 147/63 99 01/16/19 19:49 116 H 16 154/70 99 01/16/19 19:00 99.9 F H 119 H 16 164/69 99 01/16/19 18:00 121 H 16 157/66 98 01/16/19 17:00 112 H 16 150/68 97 Intake and Output 01/17/19 01/17/19 01/17/19 06:59 14:59 22:59 Intake Total 1750 Output Total 450 400 Balance 1300 -400 Intake: IV 750 Dextrose 5% in Water 1, 750 000 ml @ 125 mls/hr IV . Q9H12M RAYMOND with Sodium Bicarb (1 Meq/ml) 150 ml Rx#:[id number] Amount of Fluid Infused ( 1000 ml) Output: Urine 450 400 Other: Voiding Method Indwelling Catheter Weight 48.398 kg On examination patient is an elderly male, laying comfortably in the bed in no distress. He is alert and awake. Patient is fairly well oriented. He states that it is December 2017, and that he is in [facility]. He knows name of the current president. He knows his date of and his age. Speech and language functions are normal. No aphasia or dysarthria. On cranial nerve examination his pupils are round and reacting, visual wick are full, face is symmetric and tongue protrudes the midline. Muscle strength is normal in the arms and legs distally and proximally. He has lost some weight, therefore legs are very slim. However the strength appears normal. Reflexes are 2+ in the upper limbs, 3 at the knees, 2+ to 3 at the ankles but plantars are downgoing bilaterally. No ataxia for [id number] testing. Tone is normal bulk of muscles is overall decreased. Sensations are equal bilaterally with no neglect. Gait deferred. Results Patient's UA showed trace protein. Sodium is mildly elevated 146. BU and was mildly elevated 31 yesterday, which has improved to 19 today. Creatinine is normal. Liver functions normal. Patient's B12 was 727 on 06/04/2017. Folate 12.0. Homocysteine 7.89 normal. Thyroid functions normal as of December 2017. Patient had MRA of the neck with and without contrast on 07/29/2018 which revealed greater than 50% stenosis proximal left ICA. - Laboratory Findings CBC and BMP: 01/17/19 05:12 01/17/19 05:12 Abnormal Lab Findings: Abnormal Labs 01/16/19 01/16/19 01/16/19 12:57 12:57 14:00 RBC 3.51 L Hgb Hct MCV 115.6 H MCH 37.3 H Lymphocytes # Macrocytosis Marked A VBG pCO2 VBG HCO3 Sodium 146 H Chloride 120 H Carbon Dioxide 13 L BUN 31 H Creatinine 1.54 H Glucose 107 H POC Glucose (mg/dL) Plasma Lactic Acid Martínez Calcium 10.6 H Urine Protein Trace H 01/16/19 01/16/19 01/17/19 17:30 21:45 00:49 RBC Hgb Hct MCV MCH Lymphocytes # Macrocytosis VBG pCO2 27 L VBG HCO3 14 L Sodium Chloride Carbon Dioxide BUN Creatinine Glucose POC Glucose (mg/dL) 124 H Plasma Lactic Acid Martínez 0.5 L Calcium Urine Protein 01/17/19 01/17/19 01/17/19 05:12 05:12 11:58 RBC 3.24 L Hgb 12.2 L Hct 36.9 L MCV 114.1 H MCH 37.8 H Lymphocytes # 0.3 L Macrocytosis Marked A VBG pCO2 VBG HCO3 Sodium 146 H Chloride 113 H Carbon Dioxide 21 L BUN Creatinine Glucose 147 H POC Glucose (mg/dL) 134 H Plasma Lactic Acid Martínez Calcium Urine Protein Assessment and Plan Assessment: * Altered mental status, likely due to toxic metabolic encephalopathy. Patient was dehydrated, possible infection. * Generalized weakness, likely due to above. * Possible underlying cognitive impairment. * Seizure disorder, on Depakote. * Left ICA stenosis 50-60%. * Macrocytosis. * Hypertension * Tobacco user. Plan: * We will check Depakote level and ammonia level. * Patient has macrocytosis. Patient's B12 and folate were normal a year ago. We will recheck it and a thiamine level. * Your medical management for evaluation of fever, possible pneumonia. No clinical evidence of intracranial infection. * Patient has left ICA stenosis of moderate degree. Consider starting aspirin 81 mg daily if no medical contraindication. * Neurology coverage not available on the weekend. I will be available on 01/20/2019. * Thank you very much for allowing me to participate in care of your patient
[2019-01-17 16:56] LABS: Glucose,Whole Blood 143 mg/dL (75-99)
[2019-01-17 18:38] LABS: T4, Free (Free Thyroxine) 1.03 ng/dL (0.78-2.19)
[2019-01-17] MEDS: BUDESONIDE 0.5 MG/2 ML NEBU INHALATION SCH (19:50)
[2019-01-17] MEDS ORDERED: AZITHROMYCIN 500 MG TAB PO SCH (20:00)
[2019-01-17] MEDS ORDERED: MIRTAZAPINE 15 MG TAB PO SCH (21:00)
[2019-01-17] MEDS: MIRTAZAPINE 15 MG TAB PO SCH (21:48)
[2019-01-18] MEDS: HEPARIN SODIUM,PORCINE 5,000 UNIT/ML 1 ML VIAL SQ SCH ×3 (00:19→17:30)
[2019-01-18 05:34] LABS: Basophils # (A) 0.1 k/uL (0-0.2); Basophils % (A) 1 %; Eosinophils # (A) 0.3 k/uL (0-0.7); Eosinophils % (A) 4 %; HCT 35.9 % (39.0-53.0); HGB 11.8 gm/dL (13.0-17.5); Lymphocytes # (A) 0.4 k/uL (1.0-4.8); Lymphocytes % (A) 5 %; MCH 37.3 pg (25.0-35.0); MCHC 32.9 g/dL (31.0-37.0); MCV 113.5 fL (80.0-100.0); Macrocytosis Marked; Mean Platelet Volume 6.8; Monocytes # (A) 0.5 k/uL (0-1.0); Monocytes % (A) 6 %; Neutrophils # (A) 6.8 k/uL (1.3-7.7); Neutrophils % (A) 83 %; Platelet Count 160 k/uL (150-450); RBC 3.16 m/uL (4.30-5.90); WBC 8.3 k/uL (3.8-10.6)
[2019-01-18 05:53] LABS: ALT 30 U/L (21-72); AST 61 U/L (17-59); African American GFR (CKD) >90 (>60 ml/min/1.73 sqM); Albumin 3.4 g/dL (3.5-5.0); Alkaline Phosphatase 36 U/L (38-126); Anion Gap 7 mmol/L; Blood Urea Nitrogen 13 mg/dL (9-20); Calcium 8.9 mg/dL (8.4-10.2); Carbon Dioxide 27 mmol/L (22-30); Chloride 105 mmol/L (98-107); Glucose 107 mg/dL (74-99); Magnesium 1.6 mg/dL (1.6-2.3); Phosphorus 2.7 mg/dL (2.5-4.5); Potassium 3.4 mmol/L (3.5-5.1); Sodium 139 mmol/L (137-145); Total Bilirubin 0.4 mg/dL (0.2-1.3)
[2019-01-18] MEDS ORDERED: Potassium Replacement Protocol 1 EACH MISC MISCELLANE PRN (06:27)
[2019-01-18] MEDS: POTASSIUM CHLORIDE ER 20 MEQ TAB.ER PO SCH ×2 (06:59→08:01)
[2019-01-18] MEDS: DIVALPROEX 500 MG TABLET.DR PO SCH ×2 (08:01→20:19)
[2019-01-18] MEDS: FENOFIBRATE 160 MG TAB PO SCH (08:02)
[2019-01-18] MEDS: ATORVASTATIN 40 MG TAB PO SCH (08:02)
[2019-01-18] MEDS: PANTOPRAZOLE 40 MG TABLET PO SCH (08:02)
--- NOTE | 2019-01-18 08:45 | P.PN ---
Subjective Progress Note Date: 01/18/19 Today's evaluation of 01/18/2019 the patient remains in essentially the same condition. He is alert and oriented 1-2. Resting comfortably in bed. Had a low-grade fever 100.5 yesterday. Nevertheless, there is no obvious source of an infection. He is on empiric antibiotic coverage with Rocephin. His chest x-ray showing atelectatic changes a right lung base. There is a chronic finding as mentioned. Pulse ox is 98% increase of oxygen by nasal cannula. White cell count today is at 8.3. Hemoglobin stable at 11.8. He is having a normal renal function. Electrolytes are within normal and the potassium needs to be replaced. Neurology saw the patient and based on their opinion he does have chronic dementia. They made recommendations also to replace Depakote at a later stage. Ammonia level will be also checked. Vitamin levels came back within normal limits. Aspirin will be added regarding his carotid artery stenosis. He is on no significant respiratory distress. Laying down comfortably in bed. He'll be transferred to medical floor. Oral intake is poor and the patient is not eating a whole lot. We'll give him IV fluids at the rate of 75 mL an hour of normal saline. We'll continue to follow. Objective - Vital Signs Vital signs: Vital Signs Temp 98.8 F 01/18/19 08:00 Pulse 75 01/18/19 08:00 Resp 18 01/18/19 08:00 BP 100/48 01/18/19 08:00 Pulse Ox 98 01/18/19 08:00 Intake & Output 01/17/19 01/18/19 01/18/19 18:59 06:59 18:59 Intake Total 235 80 Output Total 400 520 200 Balance -400 -285 -120 Weight 48.398 kg 51 kg Intake: IV 80 Dextrose 5% in Water 1, 80 000 ml @ 125 mls/hr IV . Q9H12M RAYMOND with Sodium Bicarb (1 Meq/ml) 150 ml Rx#:[id number] Intake, IV Titration 235 Amount Dextrose 5% in Water 1, 235 000 ml @ 75 mls/hr IV . [id number] ONE Rx#:[id number] Output: Urine 400 520 200 Other: Voiding Method Indwelling Catheter Indwelling Catheter Indwelling Catheter - Exam GENERAL EXAM: frail, cachectic. The patient is alert and oriented 1 only. He is communicating. He is extremely poor historian. Looks very much debilitated and in poor health status. Head exam was generally normal. There was no scleral icterus or corneal arcus. Mucous membranes were moist. Neck was supple and without jugular venous distension, thyromegaly, or carotid bruits. Carotids were easily palpable bilaterally. There was no adenopathy. NOSE: Clear with pink turbinates. THROAT: No erythema or exudates. NECK: No masses, no JVD. CHEST: Sounds are diminished bilaterally along with some scattered expiratory wheezes throughout the lung wick.. CVS: S1 and S2 normal with no audible murmur, regular rhythm. ABDOMEN: No hepatosplenomegaly, normal bowel sounds, no guarding or rigidity. SPINE: No scoliosis or deformity SKIN: No rashes Examination of the extremities revealed easily palpable radial, femoral and pedal pulses. There was no cyanosis, clubbing or edema. Neurologically the patient is awake and he follows some simple verbal commands. Response to painful stimulation. His pupils are equal reactive to light. Does not have any lateralizing weakness. Positive gag. - Labs CBC & Chem 7: 01/18/19 04:35 01/18/19 04:35 Labs: Abnormal Lab Results - Last 24 Hours (Table) 01/17/19 01/17/19 01/17/19 Range/Units 05:12 11:58 16:44 RBC (4.30-5.90) m/uL Hgb (13.0-17.5) gm/dL Hct (39.0-53.0) % MCV (80.0-100.0) fL MCH (25.0-35.0) pg Lymphocytes # (1.0-4.8) k/uL Macrocytosis Potassium (3.5-5.1) mmol/L Glucose (74-99) mg/dL POC Glucose (mg/dL) 134 H 143 H (75-99) mg/dL AST (17-59) U/L Alkaline Phosphatase (38-126) U/L Total Protein (6.3-8.2) g/dL Albumin (3.5-5.0) g/dL Vitamin B12 1185.0 H (200.0-944.0) pg/mL TSH (0.465-4.680) mIU/L 01/17/19 01/18/19 01/18/19 Range/Units 16:51 04:35 04:35 RBC 3.16 L (4.30-5.90) m/uL Hgb 11.8 L (13.0-17.5) gm/dL Hct 35.9 L (39.0-53.0) % MCV 113.5 H (80.0-100.0) fL MCH 37.3 H (25.0-35.0) pg Lymphocytes # 0.4 L (1.0-4.8) k/uL Macrocytosis Marked A Potassium 3.4 L (3.5-5.1) mmol/L Glucose 107 H (74-99) mg/dL POC Glucose (mg/dL) (75-99) mg/dL AST 61 H (17-59) U/L Alkaline Phosphatase 36 L (38-126) U/L Total Protein 6.0 L (6.3-8.2) g/dL Albumin 3.4 L (3.5-5.0) g/dL Vitamin B12 (200.0-944.0) pg/mL TSH 0.020 L 0.146 L (0.465-4.680) mIU/L Microbiology - Last 24 Hours (Table) 01/16/19 12:57 Blood Culture - Preliminary Blood No Growth after 24 hours Assessment and Plan Plan: 1 generalized weakness part of overall medical debility/dementia. Underlying infection is to be considered as the patient is having episodic low-grade fever and is currently under workup in progress and the fever. 2 right lower lobe atelectatic changes seen on previous CAT scan of the chest and seen on a previous PET scan showing no metabolic activity. This is likely benign. 3 COPD inactive and stable. 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 He is having a low-grade fever that needs to be further monitored. Continued IV Rocephin. IV fluids at 75 mL an hour normal saline. Add aspirin 81 mg by mouth daily. Check ammonia level. Increased level of activity as tolerated. Neurology consultation was appreciated. Previous MRI of the brain showed abnormal superior parietal region, an area of ischemia. He does have underlying dementia. No other significant events otherwise for now. Discontinue the Archer catheter.
--- NOTE | 2019-01-18 08:49 | XR ---
EXAMINATION TYPE: XR chest 1V portable DATE OF EXAM: 01/18/2019 HISTORY: shortness of breath. REFERENCE: Previous study dated 01/17/2019. FINDINGS: The lungs are overinflated. The heart is mildly enlarged. The lungs are clear. Pleural spac es are clear. IMPRESSION: COPD.
[2019-01-18] MEDS: BUDESONIDE 0.5 MG/2 ML NEBU INHALATION SCH ×2 (08:56→19:46)
[2019-01-18] MEDS: amLODIPine 5 MG TAB PO SCH (09:24)
[2019-01-18] MEDS: hydrALAZINE HCL 50 MG TAB PO SCH ×3 (09:24→21:43)
[2019-01-18] MEDS: SODIUM CHLORIDE 0.9% 1,000 ML IV SCH ×2 (11:26→20:21)
--- NOTE | 2019-01-18 14:48 | P.PN ---
Subjective Progress Note Date: 01/18/19 This is a 68-year-old male patient of Dr. Chester with past medical history of hypertension, gastroesophageal reflux disease, chronic pain, depression and anxiety, dementia, tobacco use and dependence COPD extensive paraseptal incentive lobular. 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 Surgery performed at [facility]. He now presents emergency room secondary to fever, shortness of breath, and generalized weakness. Patient was able to provide most of the history today, accompanied by his son at bedside. Patient cannot provide medical relevance of his history,. Patient has had difficulties in swallowing, however there is no prior history of aspiration, has not been able to take his routine medications, comes in with altered mentation, also had urinary and bowel incontinence. In the emergency room, he had bilateral upper lobe infiltrates on chest x-ray,, CAT scan of the brain showed no acute abnormalities, has old white matter change in the right right occipital junction, has echocardiogram with EF of 6065%, no valvular abnormalities, urinalysis negative, influenza test negative. Patient has a urine drug screen that is positive for trichomoniasis cyclics and benzodiazepines, was admitted to ICU consultation with Dr. Srinivasan. No ABGs were done, pCO2 on admission was 13, potassium was 4.5 sodium 146 lactic acid 1.3, WBC count of 10.5 MCV of 115. Patient admitted for pneumonia cannot rule out aspiration, started in IV antibiotics, Zithromax and Rocephin 01/18: Patient is sitting up in chair in no apparent distress he denies any chest pain, shortness breath, he was ambulating using the walker without that the physical therapist today, his no abdominal pain, he has very poor appetite he has lost a lot of weight, I haven't seen him in the office in quite some time, he wanted to be discharged home in the next 24 hours. Objective - Vital Signs Vital signs: Vital Signs Temp 98.6 F 01/18/19 04:00 Pulse 86 01/18/19 04:00 Resp 16 01/18/19 04:00 BP 119/52 01/18/19 04:00 Pulse Ox 96 01/18/19 04:00 Intake & Output 01/17/19 01/18/19 01/18/19 18:59 06:59 18:59 Intake Total 235 Output Total 400 520 Balance -400 -285 Weight 48.398 kg 51 kg Intake: Intake, IV Titration 235 Amount Dextrose 5% in Water 1, 235 000 ml @ 75 mls/hr IV . [id number] ONE Rx#:[id number] Output: Urine 400 520 Other: Voiding Method Indwelling Catheter Indwelling Catheter - Exam - Constitutional General appearance: cooperative, no acute distress - EENT Eyes: anicteric sclerae, EOMI, PERRLA, dentition normal, normal appearance ENT: NA/AT, normal oropharynx - Neck Neck: normal ROM - Respiratory Respiratory: bilateral: CTA, diminished, negative: dullness, rales, rhonchi, wheezing, prolonged expiration, prolonged inspiration - Cardiovascular Rhythm: regular Heart sounds: normal: S1, S2 Abnormal Heart Sounds: no systolic murmur, no diastolic murmur, no rub, no S3 Gallop, no S4 Gallop, no click, no other - Gastrointestinal General gastrointestinal: normal bowel sounds, soft - Integumentary Integumentary: decreased turgor, normal - Neurologic Neurologic: CNII-XII intact - Musculoskeletal Musculoskeletal: generalized weakness, strength equal bilaterally - Psychiatric Psychiatric: A&O x's 3, appropriate affect - Labs CBC & Chem 7: 01/18/19 04:35 01/18/19 12:59 Labs: Abnormal Lab Results - Last 24 Hours (Table) 01/17/19 01/17/19 01/17/19 Range/Units 05:12 05:12 05:12 RBC 3.24 L (4.30-5.90) m/uL Hgb 12.2 L (13.0-17.5) gm/dL Hct 36.9 L (39.0-53.0) % MCV 114.1 H (80.0-100.0) fL MCH 37.8 H (25.0-35.0) pg Lymphocytes # 0.3 L (1.0-4.8) k/uL Macrocytosis Marked A Sodium 146 H (137-145) mmol/L Potassium (3.5-5.1) mmol/L Chloride 113 H (98-107) mmol/L Carbon Dioxide 21 L (22-30) mmol/L Glucose 147 H (74-99) mg/dL POC Glucose (mg/dL) (75-99) mg/dL AST (17-59) U/L Alkaline Phosphatase (38-126) U/L Total Protein (6.3-8.2) g/dL Albumin (3.5-5.0) g/dL Vitamin B12 1185.0 H (200.0-944.0) pg/mL TSH (0.465-4.680) mIU/L 01/17/19 01/17/19 01/17/19 Range/Units 11:58 16:44 16:51 RBC (4.30-5.90) m/uL Hgb (13.0-17.5) gm/dL Hct (39.0-53.0) % MCV (80.0-100.0) fL MCH (25.0-35.0) pg Lymphocytes # (1.0-4.8) k/uL Macrocytosis Sodium (137-145) mmol/L Potassium (3.5-5.1) mmol/L Chloride (98-107) mmol/L Carbon Dioxide (22-30) mmol/L Glucose (74-99) mg/dL POC Glucose (mg/dL) 134 H 143 H (75-99) mg/dL AST (17-59) U/L Alkaline Phosphatase (38-126) U/L Total Protein (6.3-8.2) g/dL Albumin (3.5-5.0) g/dL Vitamin B12 (200.0-944.0) pg/mL TSH 0.020 L (0.465-4.680) mIU/L 01/18/19 01/18/19 Range/Units 04:35 04:35 RBC 3.16 L (4.30-5.90) m/uL Hgb 11.8 L (13.0-17.5) gm/dL Hct 35.9 L (39.0-53.0) % MCV 113.5 H (80.0-100.0) fL MCH 37.3 H (25.0-35.0) pg Lymphocytes # 0.4 L (1.0-4.8) k/uL Macrocytosis Marked A Sodium (137-145) mmol/L Potassium 3.4 L (3.5-5.1) mmol/L Chloride (98-107) mmol/L Carbon Dioxide (22-30) mmol/L Glucose 107 H (74-99) mg/dL POC Glucose (mg/dL) (75-99) mg/dL AST 61 H (17-59) U/L Alkaline Phosphatase 36 L (38-126) U/L Total Protein 6.0 L (6.3-8.2) g/dL Albumin 3.4 L (3.5-5.0) g/dL Vitamin B12 (200.0-944.0) pg/mL TSH 0.146 L (0.465-4.680) mIU/L Microbiology - Last 24 Hours (Table) 01/16/19 12:57 Blood Culture - Preliminary Blood No Growth after 24 hours Assessment and Plan Assessment: Assessment and Plan 1. Generalized weakness wit febrile illness, CT scan did show evidence of P neumonia likely atelctesis. we will continue with the work up and continue with Rocephin for now. await Blood cultures. 2. Seizure disorder, with nonconvulsive type based on the view EEG [facility], maintained on Depakote 500 mg twice a day no changes made 3. Chronic hypertension, on hydralazine 100 mg 3 times a day, avapro on hold norvas 5 bid on hold, low bp 4. COPD, budesonide and albuterol to be given, not requiring any IV steroids at this time monitor for bronchospasms 5. Prior history of craniotomy for benign conditions, 2017 6 History of generalized anxiety disorder and recurrent depression. 5. Gastroesophageal reflux disease and GI prophylaxis. Protonix. 6. Severe protein calorie malnutrition with BMI of 14. Patient will require protein supplementation., Prealbumin 7. DVT prophylaxis. Heparin 8. 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 Hyperlipidemia on Lipitor 40 no changes made continued Lopid 600 twice a day 10. Metabolic encephalopathy, patient to be seen by neurology, EEG of the brain 11. Medical psychosis, or elevated red blood cell volume, RBC folate and vitamin B12 to be done 12. Home with the next 24 hours.
[2019-01-18] MEDS: MIRTAZAPINE 15 MG TAB PO SCH (20:14)
[2019-01-18] MEDS: BACLOFEN 10 MG TAB PO PRN (20:19)
[2019-01-19] MEDS: HEPARIN SODIUM,PORCINE 5,000 UNIT/ML 1 ML VIAL SQ SCH ×3 (00:01→15:44)
[2019-01-19] MEDS: amLODIPine 5 MG TAB PO SCH (07:31)
[2019-01-19] MEDS: DIVALPROEX 500 MG TABLET.DR PO SCH ×2 (07:31→20:55)
[2019-01-19] MEDS: ATORVASTATIN 40 MG TAB PO SCH (07:31)
[2019-01-19] MEDS: ASPIRIN 81 MG PO SCH (07:31)
[2019-01-19] MEDS: FENOFIBRATE 160 MG TAB PO SCH (07:31)
[2019-01-19] MEDS: PANTOPRAZOLE 40 MG TABLET PO SCH (07:31)
[2019-01-19] MEDS: hydrALAZINE HCL 50 MG TAB PO SCH ×4 (07:31→21:00)
[2019-01-19] MEDS: BUDESONIDE 0.5 MG/2 ML NEBU INHALATION SCH ×2 (07:48→20:27)
[2019-01-19 09:36] LABS: Basophils # (A) 0.1 k/uL (0-0.2); Basophils % (A) 1 %; Eosinophils # (A) 0.3 k/uL (0-0.7); Eosinophils % (A) 5 %; HCT 33.1 % (39.0-53.0); HGB 10.8 gm/dL (13.0-17.5); Lymphocytes # (A) 0.6 k/uL (1.0-4.8); Lymphocytes % (A) 9 %; MCH 37.8 pg (25.0-35.0); MCHC 32.8 g/dL (31.0-37.0); MCV 115.3 fL (80.0-100.0); Macrocytosis Marked; Mean Platelet Volume 7.2; Monocytes # (A) 0.5 k/uL (0-1.0); Monocytes % (A) 8 %; Neutrophils # (A) 4.9 k/uL (1.3-7.7); Neutrophils % (A) 74 %; Platelet Count 151 k/uL (150-450); RBC 2.87 m/uL (4.30-5.90); RDW 12.8 % (11.5-15.5); WBC 6.6 k/uL (3.8-10.6)
[2019-01-19 09:39] LABS: ALT 31 U/L (21-72); AST 44 U/L (17-59); African American GFR (CKD) >90 (>60 ml/min/1.73 sqM); Alkaline Phosphatase 33 U/L (38-126); Anion Gap 5 mmol/L; Blood Urea Nitrogen 14 mg/dL (9-20); Calcium 8.8 mg/dL (8.4-10.2); Carbon Dioxide 28 mmol/L (22-30); Chloride 108 mmol/L (98-107); Glucose 102 mg/dL (74-99); Potassium 3.9 mmol/L (3.5-5.1); Sodium 141 mmol/L (137-145); Total Bilirubin 0.3 mg/dL (0.2-1.3); Total Protein 5.6 g/dL (6.3-8.2)
--- NOTE | 2019-01-19 11:00 | P.PN ---
Subjective Progress Note Date: 01/19/19 This is a 68-year-old male patient of Dr. Chester with past medical history of hypertension, gastroesophageal reflux disease, chronic pain, depression and anxiety, dementia, tobacco use and dependence COPD extensive paraseptal incentive lobular. 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 Surgery performed at [facility]. He now presents emergency room secondary to fever, shortness of breath, and generalized weakness. Patient was able to provide most of the history today, accompanied by his son at bedside. Patient cannot provide medical relevance of his history,. Patient has had difficulties in swallowing, however there is no prior history of aspiration, has not been able to take his routine medications, comes in with altered mentation, also had urinary and bowel incontinence. In the emergency room, he had bilateral upper lobe infiltrates on chest x-ray,, CAT scan of the brain showed no acute abnormalities, has old white matter change in the right right occipital junction, has echocardiogram with EF of 6065%, no valvular abnormalities, urinalysis negative, influenza test negative. Patient has a urine drug screen that is positive for trichomoniasis cyclics and benzodiazepines, was admitted to ICU consultation with Dr. Srinivasan. No ABGs were done, pCO2 on admission was 13, potassium was 4.5 sodium 146 lactic acid 1.3, WBC count of 10.5 MCV of 115. Patient admitted for pneumonia cannot rule out aspiration, started in IV antibiotics, Zithromax and Rocephin 01/18: Patient is sitting up in chair in no apparent distress he denies any chest pain, shortness breath, he was ambulating using the walker without that the physical therapist today, his no abdominal pain, he has very poor appetite he has lost a lot of weight, I haven't seen him in the office in quite some time, he wanted to be discharged home in the next 24 hours. 01/19: Patient is doing a bit better today he is a bit emotional since his brothers living back to [place] today he denies any chest pain less short of breath he denies any abdominal pain nausea vomiting or diarrhea. Objective - Vital Signs Vital signs: Vital Signs Temp 98.1 F 01/19/19 04:35 Pulse 59 L 01/19/19 04:35 Resp 20 01/19/19 04:35 BP 106/54 10/20/19 04:35 Pulse Ox 96 01/19/19 04:35 Intake & Output 01/18/19 01/19/19 01/19/19 18:59 06:59 18:59 Intake Total 380 400 Output Total 200 Balance 180 400 Intake: IV 80 Dextrose 5% in Water 1, 80 000 ml @ 125 mls/hr IV . Q9H12M RAYMOND with Sodium Bicarb (1 Meq/ml) 150 ml Rx#:[id number] Oral 300 400 Output: Urine 200 Other: Voiding Method Indwelling Catheter # Voids 1 2 - Exam - Constitutional General appearance: cooperative, no acute distress - EENT Eyes: anicteric sclerae, EOMI, PERRLA, dentition normal, normal appearance ENT: NA/AT, normal oropharynx - Neck Neck: normal ROM - Respiratory Respiratory: bilateral: CTA, diminished, negative: dullness, rales, rhonchi, wheezing, prolonged expiration, prolonged inspiration - Cardiovascular Rhythm: regular Heart sounds: normal: S1, S2 Abnormal Heart Sounds: no systolic murmur, no diastolic murmur, no rub, no S3 Gallop, no S4 Gallop, no click, no other - Gastrointestinal General gastrointestinal: normal bowel sounds, soft - Integumentary Integumentary: decreased turgor, normal - Neurologic Neurologic: CNII-XII intact - Musculoskeletal Musculoskeletal: generalized weakness, strength equal bilaterally - Psychiatric Psychiatric: A&O x's 3, appropriate affect - Labs CBC & Chem 7: 01/19/19 08:40 01/19/19 08:40 Labs: Microbiology - Last 24 Hours (Table) 01/18/19 19:23 Sputum Culture - Preliminary Sputum 01/16/19 12:57 Blood Culture - Preliminary Blood No Growth after 48 hours Assessment and Plan Assessment: Assessment and Plan 1. Generalized weakness wit febrile illness, CT scan did show evidence of Pneumonia likely atelctesis. we will continue with the work up and continue with Rocephin for now. await Blood cultures. 2. Seizure disorder, with nonconvulsive type based on the view EEG [facility], maintained on Depakote 500 mg twice a day no changes made 3. Chronic hypertension, on hydralazine 100 mg 3 times a day, avapro on hold norvas 5 bid on hold, low bp 4. COPD, budesonide and albuterol to be given, not requiring any IV steroids at this time monitor for bronchospasms 5. Prior history of craniotomy for benign conditions, 2017april 07 History of generalized anxiety disorder and recurrent depression. 5. Gastroesophageal reflux disease and GI prophylaxis. Protonix. 6. Severe protein calorie malnutrition with BMI of 14. Patient will require protein supplementation., Prealbumin 7. DVT prophylaxis. Heparin 8. 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 Hyperlipidemia on Lipitor 40 no changes made continued Lopid 600 twice a day 10. Metabolic encephalopathy, patient to be seen by neurology, EEG of the brain 11. Medical psychosis, or elevated red blood cell volume, RBC folate and vitamin B12 to be done 12. Home on Sunday.
[2019-01-19] MEDS: SODIUM CHLORIDE 0.9% 1,000 ML IV SCH (12:05)
--- NOTE | 2019-01-19 14:05 | P.PN ---
Subjective Progress Note Date: 01/19/19 On today's evaluation of 01/19/2019, the patient is feeling much better. He has no significant complaints. Is able to eat more and is tolerating his diet. No nausea or vomiting. No abdominal pain. No chest pain. No fever. No chills. No nausea or vomiting. No other specific complaints. He dialyzes weakness which is improving for now. He has been walking. He is going back and forth to the bathroom without any major difficulties. Fever.Electrolytes are within normal and the potassium needs to be replaced. Neurology saw the patient and based on their opinion he does have chronic dementia. They made recommendations also to replace Depakote at a later stage. Ammonia level will be also checked. Vitamin levels came back within normal limits. Aspirin will be added regarding his carotid artery stenosis. He is on no significant respiratory distress. Laying down comfortably in bed Objective - Vital Signs Vital signs: Vital Signs Temp 98.1 F 01/19/19 04:35 Pulse 90 01/19/19 08:01 Resp 20 01/19/19 04:35 BP 106/54 01/19/19 04:35 Pulse Ox 96 01/19/19 04:35 Intake & Output 01/18/19 01/19/19 01/19/19 18:59 06:59 18:59 Intake Total 380 400 480 Output Total 200 Balance 180 400 480 Intake: IV 80 Dextrose 5% in Water 1, 80 000 ml @ 125 mls/hr IV . Q9H12M RAYMOND with Sodium Bicarb (1 Meq/ml) 150 ml Rx#:[id number] Oral 300 400 480 Output: Urine 200 Other: Voiding Method Indwelling Catheter Indwelling Catheter # Voids 1 2 1 - Exam GENERAL EXAM: frail, cachectic. The patient is alert and oriented 3 only. He is communicating. He is extremely poor historian. Looks very much debilitated and in poor health status. His body mass index is 16. Head exam was generally normal. There was no scleral icterus or corneal arcus. Mucous membranes were moist. Neck was supple and without jugular venous distension, thyromegaly, or carotid bruits. Carotids were easily palpable bilaterally. There was no adenopathy. NOSE: Clear with pink turbinates. THROAT: No erythema or exudates. NECK: No masses, no JVD. CHEST: Sounds are diminished bilaterally along with some scattered expiratory wheezes throughout the lung wick.. CVS: S1 and S2 normal with no audible murmur, regular rhythm. ABDOMEN: No hepatosplenomegaly, normal bowel sounds, no guarding or rigidity. SPINE: No scoliosis or deformity SKIN: No rashes Examination of the extremities revealed easily palpable radial, femoral and pedal pulses. There was no cyanosis, clubbing or edema. Neurologically the patient is awake and he follows commands. Response to painful stimulation. Motor weakness is noted. He is able to walk however. Significant improvement in his level of alertness and the patient is communicat ing and having a discussion without any limitation. - Labs CBC & Chem 7: 01/19/19 08:40 01/19/19 08:40 Labs: Abnormal Lab Results - Last 24 Hours (Table) 01/19/19 01/19/19 Range/Units 08:40 08:40 RBC 2.87 L (4.30-5.90) m/uL Hgb 10.8 L (13.0-17.5) gm/dL Hct 33.1 L (39.0-53.0) % MCV 115.3 H (80.0-100.0) fL MCH 37.8 H (25.0-35.0) pg Lymphocytes # 0.6 L (1.0-4.8) k/uL Macrocytosis Marked A Chloride 108 H (98-107) mmol/L Glucose 102 H (74-99) mg/dL Alkaline Phosphatase 33 L (38-126) U/L Total Protein 5.6 L (6.3-8.2) g/dL Albumin 3.0 L (3.5-5.0) g/dL Microbiology - Last 24 Hours (Table) 01/18/19 19:23 Gram Stain - Preliminary Sputum Sputum Culture - Preliminary 01/16/19 12:57 Blood Culture - Preliminary Blood No Growth after 48 hours Assessment and Plan Plan: 1 generalized weakness part of overall medical debility/dementia. Underlying infection is to be considered as the patient is having episodic low-grade fever and is currently under workup in progress and the fever. The cultures of been all negative and we haven't been able to identify any source of infection. 2 right lower lobe atelectatic changes seen on previous CAT scan of the chest and seen on a previous PET scan showing no metabolic activity. This is likely benign. 3 COPD inactive and stable. 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 IV fluids to KVO. Pain management. Pulmonary critical care services we'll sign off the case.
[2019-01-19] MEDS: BACLOFEN 10 MG TAB PO PRN (20:55)
[2019-01-19] MEDS: MIRTAZAPINE 15 MG TAB PO SCH (20:55)
[2019-01-20] MEDS: HEPARIN SODIUM,PORCINE 5,000 UNIT/ML 1 ML VIAL SQ SCH ×2 (00:05→07:28)
[2019-01-20] MEDS: SODIUM CHLORIDE 0.9% 1,000 ML IV SCH ×2 (04:12→13:51)
[2019-01-20 06:02] VITALS: BP 112/52; RESP 16; TEMP 98.7
[2019-01-20] MEDS: amLODIPine 5 MG TAB PO SCH (07:27)
[2019-01-20] MEDS: ATORVASTATIN 40 MG TAB PO SCH (07:27)
[2019-01-20] MEDS: ASPIRIN 81 MG PO SCH (07:27)
[2019-01-20] MEDS: FENOFIBRATE 160 MG TAB PO SCH (07:27)
[2019-01-20] MEDS: DIVALPROEX 500 MG TABLET.DR PO SCH (07:28)
[2019-01-20] MEDS: hydrALAZINE HCL 50 MG TAB PO SCH (07:28)
[2019-01-20] MEDS: PANTOPRAZOLE 40 MG TABLET PO SCH (07:28)
[2019-01-20] MEDS: BUDESONIDE 0.5 MG/2 ML NEBU INHALATION SCH (08:08)
[2019-01-20 08:13] VITALS: PULSE 80
[2019-01-20 11:24] VITALS: BMI 16.9
--- NOTE | 2019-01-20 11:25 | P.DS ---
Providers Date of admission: 01/16/19 20:39 Expected date of discharge: 01/20/19 Attending physician: Sayda Nino Consults: 01/16/19 17:14 Consult Physician Routine Consulting Provider: Zaki Srinivasan Consult Reason/Comments: pneumonia Do you want consulting provider notified?: Yes Consult Physician Routine Consulting Provider: Deisy Zhang Consult Reason/Comments: ams Do you want consulting provider notified?: Yes Primary care physician: Kiet Chester [facility] Course: This is a 68-year-old male patient of Dr. Chester with past medical history of hypertension, gastroesophageal reflux disease, chronic pain, depression and anxiety, dementia, tobacco use and dependence COPD extensive paraseptal incentive lobular. 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 Surgery performed at [facility]. He now presents emergency room secondary to fever, shortness of breath, and generalized weakness. Patient was able to provide most of the history today, accompanied by his son at bedside. Patient cannot provide medical relevance of his history,. Patient has had difficulties in swallowing, however there is no prior history of aspiration, has not been able to take his routine medications, comes in with altered mentation, also had urinary and bowel incontinence. In the emergency room, he had bilateral upper lobe infiltrates on chest x-ray,, CAT scan of the brain showed no acute abnormalities, has old white matter change in the right right occipital junction, has echocardiogram with EF of 6065%, no valvular abnormalities, urinalysis negative, influenza test negative. Patient has a urine drug screen that is positive for trichomoniasis cyclics and benzodiazepines, was admitted to ICU consultation with Dr. Srinivasan. No ABGs were done, pCO2 on admission was 13, potassium was 4.5 sodium 146 lactic acid 1.3, WBC count of 10.5 MCV of 115. Patient admitted for pneumonia cannot rule out aspiration, started in IV antibiotics, Zithromax and Rocephin 01/18: Patient is sitting up in chair in no apparent distress he denies any chest pain, shortness breath, he was ambulating using the walker without that the physical therapist today, his no abdominal pain, he has very poor appetite he has lost a lot of weight, I haven't seen him in the office in quite some time, he wanted to be discharged home in the next 24 hours. 01/19: Patient is doing a bit better today he is a bit emotional since his brothers living back to [place] today he denies any chest pain less short of breath he denies any abdominal pain nausea vomiting or diarrhea. 01/20: Patient denies any new complaints. Physical therapy has recommended subacute rehab and patient is agreeable to go to [facility] which has been arranged. He has been afebrile since January 18. Heart rate 84, blood pressure 112/52, pulse ox 90% on 2 L nasal cannula. Sputum culture is finalized with normal junior. Blood culture no growth after 72 hours. Patient will be discharge to [facility] in stable condition. Discharge diagnoses: 1. Generalized weakness with febrile illness due to possible Pneumonia likely atelctesis. 2. Seizure disorder, with nonconvulsive type 3. Chronic hypertension 4. COPD 5. Prior history of craniotomy for benign conditions, 2017 6. History of generalized anxiety disorder and recurrent depression. 7. Gastroesophageal reflux disease 8. Severe protein calorie malnutrition with BMI of 14. 9. 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 Hyperlipidemia 11. Metabolic encephalopathy 12. Medical psychosis Discharge plan: [facility] under the care of Dr. Chester. Impression and plan of care have been directed as dictated by the signing physician. Joceline Zimmer nurse practitioner acting as scribe for signing physician. Patient Condition at Discharge: Good Plan - Discharge Summary Discharge Rx Participant: Yes New Discharge Prescriptions: New Aspirin 81 mg PO DAILY chew Continue Baclofen 10 mg PO BID PRN PRN Reason: Muscle Spasm Atorvastatin [Lipitor] 40 mg PO DAILY amLODIPine [Norvasc] 5 mg PO BID Gemfibrozil [Lopid] 600 mg PO AC-BID Famotidine [Pepcid] 20 mg PO DAILY Mirtazapine [Remeron] 15 mg PO HS Divalproex Sodium [Depakote] 500 mg PO BID Acetaminophen [Tylenol Arthritis] 650 mg PO Q4H PRN PRN Reason: Pain hydrALAZINE HCL [Apresoline] 100 mg PO TID Budesonide [Pulmicort] 0.5 mg INHALATION RT-BID Ipratropium-Albuterol Nebulize [Duoneb 0.5 mg-3 mg/3 ml Soln] 3 ml INHALATION RT-QID Discontinued Irbesartan [Avapro] 300 mg PO DAILY Discharge Medication List Baclofen 10 mg PO BID PRN 03/24/17 [History] Acetaminophen [Tylenol Arthritis] 650 mg PO Q4H PRN 01/16/19 [History] Atorvastatin [Lipitor] 40 mg PO DAILY 01/16/19 [History] Budesonide [Pulmicort] 0.5 mg INHALATION RT-BID 01/16/19 [History] Divalproex Sodium [Depakote] 500 mg PO BID 01/16/19 [History] Famotidine [Pepcid] 20 mg PO DAILY 01/16/19 [History] Gemfibrozil [Lopid] 600 mg PO AC-BID 01/16/19 [History] Ipratropium-Albuterol Nebulize [Duoneb 0.5 mg-3 mg/3 ml Soln] 3 ml INHALATION RT-QID 01/16/19 [History] Mirtazapine [Remeron] 15 mg PO HS 01/16/19 [History] amLODIPine [Norvasc] 5 mg PO BID 01/16/19 [History] hydrALAZINE HCL [Apresoline] 100 mg PO TID 01/16/19 [History] Aspirin 81 mg PO DAILY chew 01/20/19 [Rx] Follow up Appointment(s)/Referral(s): Kiet Chester MD [Primary Care Provider] - 1 Week (at [facility]) Patient Instructions/Handouts: Fever in Adults (ED) Activity/Diet/Wound Care/Special Instructions: Patient will be admitted
== END 2019-01-20 16:03 | DRG 193 ==
LOC: EC 12:40 → 3SCARD 20:39 → 2SICU 01-17 00:16 → 4MS4W 01-18 09:32
PROVIDERS: ADMIT Family Medicine; ATTEND Family Medicine
DX: J18.9 Pneumonia, unspecified organism (principal); E43 Unspecified severe protein-calorie malnutrition; G92 Toxic encephalopathy; J98.11 Atelectasis; F33.9 Major depressive disorder, recurrent, unspecified; Z68.1 Body mass index [BMI] 19.9 or less, adult; I65.22 Occlusion and stenosis of left carotid artery; J43.9 Emphysema, unspecified; R15.9 Full incontinence of feces; F03.90 Unspecified dementia, unspecified severity, without behavioral disturbance, psychotic disturbance, mood disturbance, and anxiety; D75.89 Other specified diseases of blood and blood-forming organs; E78.5 Hyperlipidemia, unspecified; E86.0 Dehydration; F17.210 Nicotine dependence, cigarettes, uncomplicated; F41.1 Generalized anxiety disorder; G40.909 Epilepsy, unspecified, not intractable, without status epilepticus; I10 Essential (primary) hypertension; I44.0 Atrioventricular block, first degree; K21.9 Gastro-esophageal reflux disease without esophagitis; R13.10 Dysphagia, unspecified; G89.29 Other chronic pain; R32 Unspecified urinary incontinence; Z79.899 Other long term (current) drug therapy
CPT/HCPCS: 36415; 51702; 70450; 71045; 71046; 71260; 80048; 80053; 80164; 81003; 82140; 82565; 82607; 82746; 82747; 82803; 83605; 83735; 84100; 84132; 84425; 84439; 84443; 85025; 87040; 87070; 87205; 87502; 93005; 94640; 94760; 96361; 96365; 96375; 99285

== ENCOUNTER → 2019-04-15 | Outpatient (CLI) | payer MEDICARE, OTHER ==
--- NOTE | 2019-04-15 13:41 | US ---
EXAMINATION TYPE: US kidneys/renal and bladder DATE OF EXAM: 04/15/2019 COMPARISON: US dated 12/20/2015 CLINICAL HISTORY: E87.5 Hyperkalemia. EXAM MEASUREMENTS: Right Kidney: 9.9 x 3.8 x 3.8 cm Left Kidney: 10.6 x 4.6 x 5.2 cm Right Kidney: No hydronephrosis or masses seen Left Kidney: No hydronephrosis or masses seen Bladder: wnl Bilateral Jets seen: No There is no evidence for hydronephrosis at this point in time. No nephrolithiasis is seen. No joan s are identified. The urinary bladder is anechoic. Bilateral ureteral jets are seen. IMPRESSION: No hydronephrosis or nephrolithiasis. Unremarkable renal ultrasound.
== END | disposition home or self-care (01) ==
LOC: RADUSWWP 13:19
PROVIDERS: ATTEND Internal Medicine
DX: E87.5 Hyperkalemia (principal)
CPT/HCPCS: 76770

== ENCOUNTER → 2020-02-03 | Outpatient (CLI) | payer MEDICARE, OTHER ==
--- NOTE | 2020-02-03 08:43 | XR ---
EXAMINATION TYPE: XR chest 2V DATE OF EXAM: 02/03/2020 CLINICAL HISTORY: J44.9 COPD. TECHNIQUE: Frontal and lateral view of the chest. COMPARISON: 01/18/[address] chest. FINDINGS: The lungs are hyperinflated with flattening of the hemidiaphragms and interstitial coarsen ing consistent with emphysematous change. The cardiomediastinal silhouette is within normal limits fo r size. Calcified atherosclerotic disease of the thoracic aorta. Pulmonary vasculature is normal. The re is no focal air space opacity, pleural effusion, or pneumothorax seen. The osseous structures are intact. IMPRESSION: Marked emphysematous changes. No acute cardiopulmonary process.
== END | disposition home or self-care (01) ==
LOC: RADXRMAIN 07:32
PROVIDERS: ATTEND Internal Medicine
DX: J43.9 Emphysema, unspecified (principal)
CPT/HCPCS: 71046